=== PATIENT | female | born 1950 | race Caucasian/White ===

== ENCOUNTER → 2016-05-01 | Outpatient (CLI) | payer BC ==
[2016-05-01 12:30] LABS: ALT/SGPT 31 U/L (12-78); AST/SGOT 19 U/L (15-37); BLOOD UREA NITROGEN 14 mg/dl (7-18); BUN/CREATININE RATIO 14.6 (10-20); CALCIUM 9.1 mg/dl (8.5-10.1); CARBON DIOXIDE 26 mmol/L (21-32); CHLORIDE 107 mmol/L (98-107); CHOLESTEROL 151 mg/dl (0-200); CREATININE 0.99 mg/dl (0.60-1.20); GLUCOSE 131 mg/dl (70-99); SODIUM 142 mmol/L (136-145); TRIGLYCERIDES 177 mg/dl (0-150); VERY LOW DENSITY LIPOPROT CALC 35 mg/dl
[2016-05-01 12:36] LABS: ALKALINE PHOSPHATASE 90 U/L (45-117); HDL CHOLESTEROL 50 mg/dl; LDL CHOLESTEROL CALCULATED 66 mg/dl; URIC ACID 4.5 mg/dl (2.6-7.2)
[2016-05-01 12:43] LABS: ESTIMATED AVERAGE GLUCOSE 148 mg/dl; HA1C FLAG Normal (Normal)
[2016-05-01 13:16] LABS: URINE APPEARANCE CLOUDY (CLEAR); URINE BILIRUBIN NEG (NEG); URINE COLOR DK YELLOW; URINE EPITHELIAL CELL AUTO >30 /lpf (0-5); URINE NITRITE NEG (NEG); URINE SPECIFIC GRAVITY 1.018 (1.000-1.030); UROBILINOGEN NEG (NEG); ZZUR CULT IF INDIC CLEAN CATCH YES
[2016-05-01 13:19] LABS: MANUAL MICROSCOPIC REQUIRED? NO; REVIEW REQ? NO
[2016-05-01 14:10] LABS: RATIO 48.1 mcg/mg (0-30.0)
== END | disposition home or self-care (01) ==
LOC: C.LAB1850 11:05
PROVIDERS: ATTEND Internal Medicine
DX: E11.9 Type 2 diabetes mellitus without complications (principal); M10.9 Gout, unspecified

== ENCOUNTER → 2017-01-21 | Outpatient (CLI) | payer BC ==
[2017-01-21 15:58] LABS: ALT/SGPT 40 U/L (12-78); BLOOD UREA NITROGEN 23 mg/dl (7-18); BUN/CREATININE RATIO 19.5 (10-20); CARBON DIOXIDE 25 mmol/L (21-32); CHLORIDE 104 mmol/L (98-107); CREATININE 1.16 mg/dl (0.60-1.20); GLUCOSE 307 mg/dl (70-99); POTASSIUM 4.5 mmol/L (3.5-5.1); SODIUM 138 mmol/L (136-145)
[2017-01-21 16:00] LABS: AST/SGOT 21 U/L (15-37)
[2017-01-21 16:07] LABS: ALKALINE PHOSPHATASE 94 U/L (45-117); BETA-HYDROXYBUTYRATE 1.25 mg/dL (0.2-2.81)
[2017-01-22 07:03] LABS: ESTIMATED AVERAGE GLUCOSE 194 mg/dl; HA1C FLAG Normal (Normal)
== END | disposition home or self-care (01) ==
LOC: C.LAB1850 14:19
PROVIDERS: ATTEND Internal Medicine
DX: E11.9 Type 2 diabetes mellitus without complications (principal)

== ENCOUNTER → 2017-05-13 | Outpatient (CLI) | payer BC ==
[2017-05-13 13:26] LABS: HEMOGLOBIN A1C 7.1 % (4.5-5.6)
== END | disposition home or self-care (01) ==
LOC: C.LABBC 11:12
PROVIDERS: ATTEND Nurse Practitioner Family
DX: E11.9 Type 2 diabetes mellitus without complications (principal)

== ENCOUNTER 2019-08-23 16:12 | Observation (INO) ==
[2019-08-23] MEDS ORDERED: HydrALAZINE HCL 20 MG/ML VIAL IV STA ×2 (17:26→18:21)
--- NOTE | 2019-08-23 17:30 | Emergency Department Note ---
Impression & Plan Hypertensive emergency, Bradycardia, Dizziness ED Provider Note NAME: CELIO DILLON AGE: 69 SEX: F : 1950 ARRIVES VIA: Walk-In INFORMANT: Patient ED PROVIDER(S): Miguel Mccord DO CHIEF COMPLAINT: Hypertension HPI: Patient is a 69-year-old female who presents the ER for hypertension. She was seen by the PCP and referred over here for elevated blood pressures. Patient was recently diagnosed with hypertension 2 to 3 weeks ago. She was placed on hydralazine last . She has been taking 50 mg 3 times a day. Since then she has been lightheaded with changing positions. If she stands up and stays still the lightheadedness will go away. She denies any chest pain shortness of breath, nausea vomiting or diarrhea. No weakness or numbness in her arms or legs. No change in vision.Exacerbating or remitting factors. Blood pressures have been in the 190sExacerbating or remitting factors. Blood pressures have been in the 190s. She was given a dose of clonidine at her PCPs office without any change in blood pressure. ROS: See above HPI for pertinent positives & negatives. A total of 10 systems reviewed and were otherwise negative. PAST MEDICAL HISTORY:See Below PAST SURGICAL HISTORY:See Below FAMILY HISTORY:See Below SOCIAL HISTORY:See Below HOME MEDICATIONS:See Below ALLERGIES:See Below VITALS:See Below PHYSICAL EXAMINATION: GENERAL: Sitting up in bed, alert, well appearing, well nourished, no distress, non-toxic EYE EXAM: normal conjunctiva. PERRL and EOM's grossly intact. OROPHARYNX: no exudate, no erythema, lips, buccal mucosa, and tongue normal and mucous membranes are moist NECK: supple, no nuchal rigidity, no adenopathy, non-tender LUNGS: Clear to auscultation. Normal chest wall mechanics HEART: no murmurs, S1 normal and S2 normal ABDOMEN: abdomen soft, non-tender, normo-active bowel sounds, no masses, no rebound or guarding. BACK: Back is symmetrical on inspection and there is no deformity, no midline tenderness, no CVA tenderness. SKIN: no rashes and no bruising UPPER EXTREMITIES: upper extremities are grossly normal. LOWER EXTREMITIES: No pitting edema. NEURO EXAM: Normal sensorium, cranial nerves II-XII intact, normal speech, no weakness of arms, no weakness of legs. No drift. Finger to nose intact. Gross sensation intact. MEDICAL DECISION MAKING: Patient is a 69-year-old female who presents the ER was referred in by PCP for hypertension. She is been struggling with this for the past 2 to 3 weeks. Blood pressure at the PCP was 190. She was given dose clonidine with no improvement. She is been taking hydralazine 50 mg 3 times a day.IV was established blood work was obtained. Labs show no significant leukocytosis or anemia. INR was unremarkable. BMP with a slightly elevated chloride. LFTs bilirubin and troponin was negative. Lipase was unremarkable.EKG showed no acute ischemia but did show T wave inversion in the high lateral leads. Unable to compare to old but with a negative troponin doubtful that this is new Especially with her not having any chest pain or shortness of breath. Do favor the intermittent dizziness is positional and secondary to the hydralazine as it coincides with when she started this medication.Patient was given 2 dose of IV hydralazine. Blood pressure trended down from 230 systolics to 180. Patient was updated bedside. Discussed with the hospitalist and she was admitted for further work-up. Triage Nursing notes reviewed. Prior medical records reviewed Vital Signs: reviewed and remarkable for HTN Differential diagnosis: Benign hypertension, hypertensive emergency, cardiovascular pathology, toxicologic, pheochromocytoma, electrolyte abnormality, renal disease, endorgan damage, as well as other pathologies. ER treatment provided: See below Diagnostics interpreted by me: ECG: Sinus bradycardia rate of 54 Normal axis No PVCs Nonspecific ST wave changes in the high lateral leads Cardiac Monitoring: An order was placed for continuous cardiac monitoring. The monitor shows a rate of 62 with Sinus rhythm. Laboratory studies: As stated above and show below. Imaging studies: Audible AP upright 1 view of the chest shows no focal infiltrate CT of the head shows no acute infarct Consultation(s): Discussed with Dr. Truman Quinones ED COURSE: Procedures: none Critical Care: I have personally spent 32 minutes of critical care time in the direct management of this patient. This includes bedside care, interpretation of diagnostic studies, and testing, discussion with consultants, patient, and family members, and other required patient management activities. This 32 minutes is in excess of all separately billable procedures. Past Med/Surg History Social History Preferred Language: Greek Communication Ability: Effective marital status: Current Living Situation: Spouse current occupational status: retired Feels Safe at Home: Yes Smoking Status: Never smoker Hx Alcohol Use: No Hx Substance Use: No Diet Comment: Does not follow any particular diet Dental Care, Regularly: Yes Physical Activity Frequency: Does not Exercise Seatbelt Use: always Allergies Allergies Allergy/AdvReac Type Severity Reaction Status Date / Time No Known Drug Allergies AdvReac Verified 08/23/19 18:22 Home Meds Home Medications Medication Instructions Recorded Confirmed aspirin 81 mg tablet,delayed 81 mg PO Q OTHER DAY tab 02/04/19 08/23/19 release lancets 33 gauge ea 03/12/19 08/23/19 atenolol 50 mg PO PM 08/23/19 08/23/19 bumetanide 2 mg PO DAILY PRN 08/23/19 08/23/19 calcium carbonate [Calcium 600] 600 mg PO AMPM 08/23/19 08/23/19 ibuprofen [Advil] 600 mg PO Q6H PRN 08/23/19 08/23/19 insulin lispro [Humalog KwikPen 50 units SQ BIDM 08/23/19 08/23/19 Insulin] loperamide [Imodium A-D] 2 mg PO QID PRN 08/23/19 08/23/19 losartan 100 mg PO PM 08/23/19 08/23/19 omega-3 fatty acids 1,000 mg PO BID 08/23/19 08/23/19 pravastatin 20 mg PO PM 08/23/19 08/23/19 probenecid 500 mg PO PM 08/23/19 08/23/19 Previous Rx's Medication Instructions Recorded potassium chloride 10 mEq 10 meq PO DAILY #30 tab 08/05/18 tablet,extended release sumatriptan succinate 50 mg tablet 50 mg PO DAILY PRN #6 box 04/05/19 OneTouch Ultra Blue Test Strip #400 ea NS 05/19/19 Martha Heaton U-300 Insulin 300 48 units SQ HS #18 ml NS 07/01/19 unit/mL (1.5 mL) subcutaneous pen clonidine HCl 0.1 mg tablet 0.1 mg PO BID #60 tab 08/23/19 Results & Data (ED) Vital Signs Vital Signs - 24 hr 08/23/19 16:15 08/23/19 17:44 08/23/19 18:30 Temperature 37.1 C Temperature Source Oral Pulse Rate 73 Pulse Rate [Finger] 62 82 Pulse Rhythm Regular Pulse Strength Normal Respiratory Rate 16 18 20 Respiratory Effort / Characteristics Non-Labored Non-Labored Respiratory Depth Normal Normal Normal Respiratory Pattern Regular Blood Pressure 230/90 H Blood Pressure [Left Arm] 197/71 H 186/72 H Blood Pressure Mean 136 Blood Pressure Mean [Left Arm] 113 110 Blood Pressure Position Sitting Pulse Oximetry 92 97 97 Oxygen Delivery Method Room Air Room Air Sepsis Recent Fever Within 48 Hours No Sepsis Action Taken by Nursing No Action Required 08/23/19 19:51 Temperature Temperature Source Pulse Rate Pulse Rate [Finger] 65 Pulse Rhythm Pulse Strength Respiratory Rate 18 Respiratory Effort / Characteristics Respiratory Depth Respiratory Pattern Blood Pressure Blood Pressure [Left Arm] 211/87 H Blood Pressure Mean Blood Pressure Mean [Left Arm] 128 Blood Pressure Position Pulse Oximetry 99 Oxygen Delivery Method Sepsis Recent Fever Within 48 Hours Sepsis Action Taken by Nursing Laboratory Data Result diagrams: 08/23/19 17:50 08/23/19 17:50 Lab Results 08/23/19 08/23/19 08/23/19 Range/Units 17:50 17:50 17:50 WBC 10.30 (4.8-10.8) K/uL RBC 4.98 (4.2-5.4) M/uL Hgb 14.6 (12.0-16.0) g/dL Hct 45.1 (37-47) % MCV 90.6 (80-100) fL MCH 29.3 (25-34) pg MCHC 32.4 (32-36) g/dL RDW Std Deviation 48.3 H (36.4-46.3) fL RDW Coeff of Bennie 14.6 H (11.5-14.5) % Plt Count 288 (130-400) K/uL MPV 9.6 (7.4-10.4) fL Immature Gran % (Auto) 0.3 % Neut % (Auto) 72.2 % Lymph % (Auto) 16.7 % [place] % (Auto) 8.9 % Eos % (Auto) 1.2 % Baso % (Auto) 0.7 % Neut # (Auto) 7.44 H (1.4-6.5) K/uL Lymph # (Auto) 1.72 (1.2-3.4) K/uL [place] # (Auto) 0.92 H (0.11-0.59) K/uL Eos # (Auto) 0.12 (0-0.5) K/uL Baso # (Auto) 0.07 (0-0.2) K/uL Immature Gran # (Auto) 0.03 H (0.00-0.02) K/uL PT 10.7 (9.0-12.0) Seconds INR 1.0 (0.9-1.1) APTT 24.9 (21.0-31.0) Seconds PTT Ratio 0.9 Sodium 141 (136-145) mmol/L Potassium 3.7 (3.5-5.1) mmol/L Chloride 110 H (98-107) mmol/L Carbon Dioxide 23 (21-32) mmol/L Anion Gap 8.0 (3-11) BUN 17 (7-18) mg/dl Creatinine 1.03 (0.6-1.2) mg/dl Est Cr Clr Drug Dosing 73.6 ml/min Est GFR ( Amer) 63.8 Est GFR (Non-Af Amer) 55.0 BUN/Creatinine Ratio 16.7 (10-20) Glucose 111 H (70-99) mg/dl Calcium 9.1 (8.5-10.1) mg/dl Total Bilirubin 0.4 (0.2-1) mg/dl AST 24 (15-37) U/L ALT 35 (12-78) U/L Alkaline Phosphatase 80 (45-117) U/L Troponin I < 0.015 (0-0.045) ng/ml Total Protein 7.6 (6.4-8.2) gm/dl Albumin 3.5 (3.4-5.0) gm/dl Globulin 4.1 H (2.5-4.0) gm/dl Albumin/Globulin Ratio 0.8 L (0.9-2) Lipase 67 L (73-393) U/L Administered Medications Discontinued Medications Hydralazine HCl (Hydralazine Hcl) 10 mg IV NOW STA Stop: 08/23/19 17:27 Last Admin: 08/23/19 17:52 Dose: 10 mg Documented by: [id number] Hydralazine HCl (Hydralazine Hcl) 10 mg IV NOW STA Stop: 08/23/19 18:22 Last Admin: 08/23/19 19:46 Dose: 10 mg Documented by: [id number] Discharge Plan Visit Data Chief Complaint: Hypertension Stated Complaint: HIGH BP, REF BY DOCTOR ED Provider: Miguel Mccord Discharge Problem: Hypertensive emergency, Bradycardia, Dizziness Forms Stand Alone Forms: My [facility] Prescriptions Prescriptions: No Action (DME) OneTouch Ultra Blue Test Strip Strip See Dose Instructions .ROUTE .MEDSUPPLY Qty: 400 RF: 3 Toujeo SoloStar U-300 Insulin 300 unit/mL (1.5 mL) insulin pen 48 units SQ HS Qty: 18 RF: 3 potassium chloride [Klor-Con 10] 10 mEq tablet extended release 10 meq PO DAILY Qty: 30 RF: 0 (DME) lancets [OneTouch Delica Plus Lancet] 33 gauge misc See Dose Instructions .ROUTE .MEDSUPPLY RF: 0 clonidine HCl 0.1 mg tablet 0.1 mg PO BID Qty: 60 RF: 2 aspirin 81 mg tablet,delayed release (DR/EC) 81 mg PO Q OTHER DAY RF: 0 sumatriptan succinate 50 mg tablet 50 mg PO DAILY PRN (Reason: headache) Qty: 6 RF: 0 loperamide [Imodium A-D] 2 mg Tablet 2 mg PO QID PRN (Reason: Diarrhea) RF: 0 bumetanide 2 mg tablet 2 mg PO DAILY PRN (Reason: hx of edema) RF: 0 omega-3 fatty acids 1,000 mg capsule 1,000 mg PO BID RF: 0 atenolol 100 mg tablet 50 mg PO PM RF: 0 calcium carbonate [Calcium 600] 600 mg calcium (1,500 mg) tablet 600 mg PO AMPM RF: 0 ibuprofen [Advil] 200 mg tablet 600 mg PO Q6H PRN (Reason: pain) RF: 0 pravastatin 20 mg tablet 20 mg PO PM RF: 0 losartan 100 mg tablet 100 mg PO PM RF: 0 probenecid 500 mg tablet 500 mg PO PM RF: 0 insulin lispro [Humalog KwikPen Insulin] 100 unit/mL insulin pen 50 units SQ BIDM RF: 0
[2019-08-23 18:08] LABS: Basophils # (auto) 0.07 K/uL (0-0.2); Basophils % (auto) 0.7 %; Eosinophils # (auto) 0.12 K/uL (0-0.5); Eosinophils % (auto) 1.2 %; Hematocrit (blood only) 45.1 % (37-47); Hemoglobin 14.6 g/dL (12.0-16.0); Immature Granulocytes # (auto) 0.03 K/uL (0.00-0.02); Immature Granulocytes % (auto) 0.3 %; Lymphocytes # (auto) 1.72 K/uL (1.2-3.4); Lymphocytes % (auto) 16.7 %; Mean Corpuscular Hemoglobin 29.3 pg (25-34); Mean Corpuscular Hgb Conc 32.4 g/dL (32-36); Mean Corpuscular Volume 90.6 fL (80-100); Mean Platelet Volume 9.6 fL (7.4-10.4); Monocytes # (auto) 0.92 K/uL (0.11-0.59); Monocytes % (auto) 8.9 %; Neutrophils # (auto) 7.44 K/uL (1.4-6.5); Neutrophils % (auto) 72.2 %; Platelet Count 288 K/uL (130-400); RDW Coefficient of Variation 14.6 % (11.5-14.5); RDW Standard Deviation 48.3 fL (36.4-46.3); Red Blood Count 4.98 M/uL (4.2-5.4)
[2019-08-23 18:15] LABS: Partial Thromboplastin Ratio 0.9; Partial Thromboplastin Time 24.9 Seconds (21.0-31.0); Prothrombin Time 10.7 Seconds (9.0-12.0)
[2019-08-23 18:22] LABS: Alanine Aminotransferase 35 U/L (12-78); Albumin Level 3.5 gm/dl (3.4-5.0); Aspartate Aminotransferase 24 U/L (15-37); BUN Creatinine Ratio 16.7 (10-20); Blood Urea Nitrogen 17 mg/dl (7-18); Calcium 9.1 mg/dl (8.5-10.1); Carbon Dioxide 23 mmol/L (21-32); Chloride 110 mmol/L (98-107); Creatinine Clr Calc Pharmacy 73.6 ml/min; Est GFR (African American) 63.8; Glucose 111 mg/dl (70-99); Lipase 67 U/L (73-393); Potassium 3.7 mmol/L (3.5-5.1); Sodium 141 mmol/L (136-145)
--- NOTE | 2019-08-23 18:24 | XRay Report ---
SINGLE VIEW CHEST CLINICAL HISTORY: Atypical chest pain. FINDINGS: An AP, portable, upright chest radiograph is obtained. No prior studies are available for c omparison at the time of dictation. The heart is enlarged noting atherosclerotic calcification of th e thoracic aorta. The pulmonary vasculature is noncongested. There is bibasilar scarring/atelectasis. No airspace consolidation or large pleural effusion is identified. No pneumothorax is seen. The skel etal structures are osteopenic. The bony thorax is grossly intact. IMPRESSION: Cardiomegaly with no acute cardiopulmonary abnormality. ACT 112: Negative or not required by law. Electronically signed by: Elan Ray M.D. 08/23/2019 6:23 PM
[2019-08-23 18:26] LABS: Albumin Globulin Ratio 0.8 (0.9-2); Alkaline Phosphatase 80 U/L (45-117); Bilirubin,Total 0.4 mg/dl (0.2-1); Globulin 4.1 gm/dl (2.5-4.0); Total Protein 7.6 gm/dl (6.4-8.2); Troponin I < 0.015 ng/ml (0-0.045)
--- NOTE | 2019-08-23 18:41 | CT Scan Report ---
CT SCAN OF THE BRAIN WITHOUT IV CONTRAST CLINICAL HISTORY: Dizziness. COMPARISON STUDY: MRI of the brain dated 05/19/2015. TECHNIQUE: Unenhanced axial CT scan of the brain is performed from the vertex to the skull base. A do se lowering technique was utilized adhering to the principles of ALARA. CT DOSE: 537.48 mGy.cm FINDINGS: Brain parenchyma: There is mild age-related involutional change. There is no hemorrhage, mass effect, or evidence of acute territorial ischemia by CT criteria. Ramos-white matter differentiation is prese rved. No extra-axial fluid collection is seen. Ventricles, sulci, cisterns: Prominent secondary to involutional change. Intracranial vasculature: There is mild atherosclerotic calcification of the cavernous carotid arteri es. Calvarium: Unremarkable. Sinuses and mastoids: The visualized paranasal sinuses are clear. The mastoid air cells are well pneu matized. Orbits: The bony orbits are grossly intact. IMPRESSION: There is no hemorrhage, mass effect, or evidence of acute territorial ischemia by CT mannie ramos. ACT 112: Negative or not required by law. Electronically signed by: Elan Ray M.D. 08/23/2019 6:39 PM
--- NOTE | 2019-08-23 20:36 | History & Physical Report ---
Date of Service August 23, 2019 Assessment & Plan (1) Hypertensive urgency: 69 yo F with PMH DM2 on insulin, recent HTN diagnosis uncontrolled on 4+ medications, admitted for HTNive urgency and BP control. 1) HTNive Urgency - no signs of end organ failure or damage. Pressures of 200/90 on admission. Received 10 mg IV Hydralazine x2 in ED, lowering BP to 180/90. - Outpatient regimen: - Clonidine 0.1 mg PO BID (new as of 08/22) - Losartan 100 mg PO PM - Bumex 2 mg PO daily PRN Swelling - Atenolol 50 mg PO PM - Hold atenolol. -Start cardizem 60 mg Q6H ordered overnight to assess response to CCB. Can switch to CD formulation in AM if responding appropriately - consider weaning clonidine if cardizem provides better control going forward - renal artery and parenchyma US ordered to assess for stenosis/disease - AM aldosterone and renin levels given resistant HTN in setting of difficulty controlling on 4+ medications - requires lots of education regarding dietary and lifestyle management of hypertension [dietary consult placed for discussion re: easy foods to work with on a heart healthy and diabetic diet] 2) RIYA? - would benefit from outpatient testing for RIYA given positive response to screening questions per HPI - can consider overnight O2 sat monitoring or trial with CPAP in hospital 3) DM2 on insulin - Home regimen: - Toujeo 48 units nightly - Insulin Lispro 12 units with lunch, 20 with dinner - Nightly insulin adjusted to 80% of normal x1 dose given conversion from Toujeo to Lantus [35 units x 1 dose 08/22 pm]. - Nightly insulin going forward 40 units Lantus QPM while hospitalized, can be adjusted based on sugars and requirements - SSI ordered, 1:7 carb ratio, correction factor 25 4) CAD prevention - no NE/CAD hx - continue daily ASA 81 mg, pravastatin 20 mg - high risk for adverse cardiac events (14.8% 10 year risk of NE/) 5) Migraines with aura - sumatriptan continued from home regimen 6) Gout - probenacid continued from home DVT ppx: lovenox FEN/GI: Carb consistent, low sodium diet Code Status: Full Code Dispo: Med/Surg with Tele (2) Dizziness: (3) H/O: hysterectomy: (4) Insulin dependent diabetes mellitus: History of Present Illness Isabell is a 69-year-old female with a past medical history of diabetes type 2 managed on insulin with a recent diagnosis of hypertension. She has been on a number of new blood pressure medications in the outpatient setting and was seen in her primary care office earlier today and found to have increasingly high blood pressures. She was sent over to the emergency department for IV medication for blood pressure control. She attests to feeling dizzy when going from sitting to standing but otherwise denies any dizziness when walking or sitting at rest. She denies any chest pain, chest tightness, chest pressure, shortness of breath. She denies any blurring or changes in vision. She denies any numbness or tingling. She does attest to feeling body wide fatigue but no focal weakness. In discussing options of obstructive sleep apnea she states that her has told her that she snores however she "does not believe him". He has never told her that he has heard her stop breathing while sleeping. She does wake up unrested and frequently feels tired enough to take naps in the middle of the day. She has never fallen asleep while driving but does often feel sleepy in the afternoons. Primary Care Provider: Arik Bañuelos MD Allergies Allergy/AdvReac Type Severity Reaction Status Date / Time No Known Drug Allergies AdvReac Verified 08/23/19 18:22 Home Medications Home Medications Medication Instructions Recorded Confirmed Type potassium chloride 10 mEq 10 meq PO DAILY #30 tab 08/05/18 08/23/19 Rx tablet,extended release aspirin 81 mg tablet,delayed 81 mg PO Q OTHER DAY tab 02/04/19 08/23/19 History release lancets 33 gauge ea 03/12/19 08/23/19 History sumatriptan succinate 50 mg tablet 50 mg PO DAILY PRN #6 box 04/05/19 08/23/19 Rx OneTouch Ultra Blue Test Strip #400 ea NS 05/19/19 08/23/19 Rx Toujeo SoloStar U-300 Insulin 300 48 units SQ HS #18 ml NS 07/01/19 08/23/19 Rx unit/mL (1.5 mL) subcutaneous pen atenolol 50 mg PO PM 08/23/19 08/23/19 History bumetanide 2 mg PO DAILY PRN 08/23/19 08/23/19 History calcium carbonate [Calcium 600] 600 mg PO AMPM 08/23/19 08/23/19 History clonidine HCl 0.1 mg tablet 0.1 mg PO BID #60 tab 08/23/19 08/23/19 Rx ibuprofen [Advil] 600 mg PO Q6H PRN 08/23/19 08/23/19 History insulin lispro [Humalog KwikPen 50 units SQ BIDM 08/23/19 08/23/19 History Insulin] loperamide [Imodium A-D] 2 mg PO QID PRN 08/23/19 08/23/19 History losartan 100 mg PO PM 08/23/19 08/23/19 History omega-3 fatty acids 1,000 mg PO BID 08/23/19 08/23/19 History pravastatin 20 mg PO PM 08/23/19 08/23/19 History probenecid 500 mg PO PM 08/23/19 08/23/19 History Past Med/Surg History Social History Preferred Language: Romansh Communication Ability: Effective Appeals Rn Required: No marital status: Current Living Situation: Spouse current occupational status: retired Other Information That Helps Us Care for You: No Feels Safe at Home: Yes Safety Concerns: Feels Safe At This Time Smoking Status: Never smoker Hx Alcohol Use: Yes Hx Substance Use: No Diet Comment: Does not follow any particular diet Dental Care, Regularly: Yes Physical Activity Frequency: Does not Exercise Seatbelt Use: always Review of Systems Constitutional: + fatigue; no fever, no chills and no body aches Respiratory: no cough and no dyspnea Cardiovascular: no chest pain, no dyspnea and no edema Gastrointestinal: no abdominal pain, no nausea, no vomiting, no constipation and no diarrhea/loose stools Genitourinary: no dysuria Physical Exam Physical Exam: Constitutional: obese, in no apparent distress, sitting comfortably in bed. Eyes: EOMI, pupils equal and reactive bilaterally, no scleral icterus HENT: Thick neck Cardiac: RRR, no murmurs, gallops or rubs. Normal S1, S2 Pulm: CTA BL, no wheezes, rhonchi, crackles or rubs, moving air well throughout both lungs Abd: soft, nontender, nondistended, normal bowel sounds, no rebound or guarding Extremities: 2+ peripheral pulses, no edema Neuro: no focal deficits, moving all 4 limbs, A&Ox3 Results & Data Results & Data ([facility]) Vital Signs (Past 12 Hours) Vital Signs Temp Pulse Pulse Resp BP BP Pulse Ox 08/23/19 19:51 65 18 211/87 H 99 08/23/19 18:30 82 20 186/72 H 97 08/23/19 17:44 62 18 197/71 H 97 08/23/19 16:15 37.1 C 73 16 230/90 H 92 Laboratory Results WBC 10.30 K/uL (4.8-10.8) 08/23/19 17:50 RBC 4.98 M/uL (4.2-5.4) 08/23/19 17:50 Hgb 14.6 g/dL (12.0-16.0) 08/23/19 17:50 Hct 45.1 % (37-47) 08/23/19 17:50 MCV 90.6 fL (80-100) 08/23/19 17:50 MCH 29.3 pg (25-34) 08/23/19 17:50 MCHC 32.4 g/dL (32-36) 08/23/19 17:50 RDW Std Deviation 48.3 fL (36.4-46.3) H 08/23/19 17:50 RDW Coeff of Bennie 14.6 % (11.5-14.5) H 08/23/19 17:50 Plt Count 288 K/uL (130-400) 08/23/19 17:50 MPV 9.6 fL (7.4-10.4) 08/23/19 17:50 Immature Gran % (Auto) 0.3 % 08/23/19 17:50 Neut % (Auto) 72.2 % 08/23/19 17:50 Lymph % (Auto) 16.7 % 08/23/19 17:50 [place] % (Auto) 8.9 % 08/23/19 17:50 Eos % (Auto) 1.2 % 08/23/19 17:50 Baso % (Auto) 0.7 % 08/23/19 17:50 Neut # (Auto) 7.44 K/uL (1.4-6.5) H 08/23/19 17:50 Lymph # (Auto) 1.72 K/uL (1.2-3.4) 08/23/19 17:50 [place] # (Auto) 0.92 K/uL (0.11-0.59) H 08/23/19 17:50 Eos # (Auto) 0.12 K/uL (0-0.5) 08/23/19 17:50 Baso # (Auto) 0.07 K/uL (0-0.2) 08/23/19 17:50 Immature Gran # (Auto) 0.03 K/uL (0.00-0.02) H 08/23/19 17:50 PT 10.7 Seconds (9.0-12.0) 08/23/19 17:50 INR 1.0 (0.9-1.1) 08/23/19 17:50 APTT 24.9 Seconds (21.0-31.0) 08/23/19 17:50 PTT Ratio 0.9 08/23/19 17:50 Sodium 141 mmol/L (136-145) 08/23/19 17:50 Potassium 3.7 mmol/L (3.5-5.1) 08/23/19 17:50 Chloride 110 mmol/L (98-107) H 08/23/19 17:50 Carbon Dioxide 23 mmol/L (21-32) 08/23/19 17:50 Anion Gap 8.0 (3-11) 08/23/19 17:50 BUN 17 mg/dl (7-18) 08/23/19 17:50 Creatinine 1.03 mg/dl (0.6-1.2) 08/23/19 17:50 Est Cr Clr Drug Dosing 73.6 ml/min 08/23/19 17:50 Est GFR ( Amer) 63.8 08/23/19 17:50 Est GFR (Non-Af Amer) 55.0 08/23/19 17:50 BUN/Creatinine Ratio 16.7 (10-20) 08/23/19 17:50 Glucose 111 mg/dl (70-99) H 08/23/19 17:50 POC Glucose 94 mg/dl (70-99) 08/23/19 21:03 Calcium 9.1 mg/dl (8.5-10.1) 08/23/19 17:50 Total Bilirubin 0.4 mg/dl (0.2-1) 08/23/19 17:50 AST 24 U/L (15-37) 08/23/19 17:50 ALT 35 U/L (12-78) 08/23/19 17:50 Alkaline Phosphatase 80 U/L (45-117) 08/23/19 17:50 Troponin I < 0.015 ng/ml (0-0.045) 08/23/19 17:50 Total Protein 7.6 gm/dl (6.4-8.2) 08/23/19 17:50 Albumin 3.5 gm/dl (3.4-5.0) 08/23/19 17:50 Globulin 4.1 gm/dl (2.5-4.0) H 08/23/19 17:50 Albumin/Globulin Ratio 0.8 (0.9-2) L 08/23/19 17:50 Lipase 67 U/L (73-393) L 08/23/19 17:50 Supervising Physician Co-Signing Physician Notes Attending addendum: I have physically seen this patient, have supervised the medical residents activities, and agree with the H&P unless as otherwise noted. Assessment and Plan: Hypertensive urgency- Patient presently on 4 antihypertensives. Assess for secondary causes of hypertension with ultrasound of kidneys/renal arteries. Add renin and aldosterone levels. Continue aspirin 81 mg daily. Hydralazine 50 mg p.o. 3 times daily was increased from 25 mg p.o. twice daily o n 08/18. Hydralazine 50 mg p.o. 3 times daily was discontinued on 08/22 with the addition of clonidine 0.1 mg p.o. twice daily Hold bumetanide. Hold atenolol. Resume hydralazine at 25 mg p.o. 3 times daily Continue clonidine 0.1 mg p.o. twice daily for now. Add Cardizem 60 mg p.o. every 6 hours, then convert to CD dosing if working well. Follow blood pressure and heart rate response, and adjust medications as needed. Try to simplify regimen. Avoid NSAIDs Remainder of orders and notations as noted Resident Activity Tracking Resident Involvement: Resident Care Provided Care Provided: [facility]
[2019-08-23] MEDS ORDERED: ATENOLOL 50 MG TABLET PO SCH ×2 (22:54)
[2019-08-23] MEDS ORDERED: DEXTROSE 50% 50 ML SYRINGE IV PRN ×2 (22:54→23:15)
[2019-08-23] MEDS ORDERED: ACETAMINOPHEN 325 MG TAB PO PRN (22:54)
[2019-08-23] MEDS ORDERED: IBUPROFEN 600 MG TAB PO PRN (22:54)
[2019-08-23] MEDS ORDERED: SUMAtriptan succinate 50 MG TAB PO PRN (22:54)
[2019-08-23] MEDS ORDERED: GLUCOSE 10 TABS/TUBE PO PRN ×2 (22:54→23:15)
[2019-08-23] MEDS ORDERED: BUMETANIDE 1 MG TAB PO PRN (22:54)
[2019-08-23] MEDS ORDERED: ONDANSETRON INJ 2 MG/ML 2 ML VIAL IV PRN (22:54)
[2019-08-23] MEDS ORDERED: GLUCAGON FOR INJ 1 MG VIAL SQ PRN (22:54)
[2019-08-23] MEDS ORDERED: MAGNESIUM HYDROXIDE SUSP 30 ML UDC PO PRN (22:54)
[2019-08-23] MEDS ORDERED: GLUCOSE 40% GEL 15 GM TUBE PO PRN ×2 (22:54→23:15)
[2019-08-23] MEDS ORDERED: NITROGLYCERIN SL 0.4 MG/TAB TAB SL PRN (22:54)
[2019-08-23] MEDS ORDERED: POLYETHYLENE (MIRALAX) 17 GM PACK PO PRN (22:54)
[2019-08-23] MEDS ORDERED: CARBOHYDRATES FOR HYPOGLYCEMIA PO PRN ×2 (22:54→23:15)
[2019-08-23] MEDS ORDERED: INSULIN GLARGINE SOLOSTAR 100 UNITS/ML 3 ML PEN SC ONE (22:54)
[2019-08-23] MEDS ORDERED: ALUMINUM/MAGNESIUM SUSP 30 ML UDC PO PRN (22:54)
[2019-08-23] MEDS ORDERED: GLUCAGON FOR INJ 1 MG VIAL IM PRN (23:15)
[2019-08-23] MEDS: CALCIUM CARBONATE 1250MG TAB PO SCH (23:55)
[2019-08-23] MEDS: PRAVASTATIN SOD 20 MG TAB PO SCH (23:56)
[2019-08-23] MEDS: cloNIDine HCL 0.1 MG TAB PO SCH (23:56)
[2019-08-23] MEDS: PROBENECID 500 MG TAB PO SCH (23:57)
[2019-08-23] MEDS: LOSARTAN POTASSIUM 50 MG TAB PO SCH (23:57)
[2019-08-23] MEDS: OMEGA-3 (PURIFIED FISH OIL) 1 GM CAP PO SCH (23:58)
[2019-08-24] MEDS: dilTIAZem HCl 60 MG TAB PO SCH ×5 (00:05→23:02)
[2019-08-24] MEDS: INSULIN ASPART 100 UNITS/ML 3 ML PEN SC SCH ×6 (00:05→20:37)
[2019-08-24] MEDS: D5W AND 1/2NSS + 20MEQ KCL 20 MEQ/1,000 ML BAG IV SCH ×3 (01:33→23:09)
--- NOTE | 2019-08-24 05:24 | Billing Data ---
Date of Service August 24, 2019 Coding Level of Care Code 71035 OBS Care - Level 3
--- NOTE | 2019-08-24 08:03 | Electrocardiogram Report ---
Test Reason : Blood Pressure : / mmHG Vent. Rate : 054 BPM Atrial Rate : 054 BPM P-R Int : 170 ms QRS Dur : 088 ms QT Int : 462 ms P-R-T Axes : 060 027 088 degrees QTc Int : 438 ms Sinus bradycardia with sinus arrhythmia Otherwise normal ECG No previous ECGs available Confirmed by Ayan Jackman ([id number]) on 08/24/2019 8:02:39 AM Referred By: Arik Ward Confirmed By:Ayan Jackman
--- NOTE | 2019-08-24 08:53 | Ultrasound Report ---
DOPPLER ULTRASOUND OF THE RENAL ARTERIES CLINICAL HISTORY: Hypertension. COMPARISON STUDY: Abdominal ultrasound dated 03/12/2012. TECHNIQUE: Doppler sonography of the renal arteries was performed to assess renal artery stenosis. Im ages are reviewed in the transverse and longitudinal planes. FINDINGS: The kidneys demonstrate cortical atrophy and are normal in echotexture. The right kidney measures 10. 8 cm in length and the left kidney measures 11.7 cm in length. There is no hydronephrosis. A 9 mm sha dowing calculus is noted in the interpolar right kidney. On the right, intrarenal arterial resistive indices range from 0.73 to 0.76. Intrarenal arterial wave forms are normal with brisk upstrokes. The right renal arterial waveform is normal, and velocities wi thin the right renal artery measure up to 134 cm/sec. The right renal vein is patent. On the left, intrarenal arterial resistive indices range from 0.80 to 0.81. Intrarenal arterial wave forms are normal with brisk upstrokes. The left renal arterial waveform is normal, and velocities wit hin the left renal artery measure up to 216 cm/sec. The left renal vein is patent. The abdominal aorta is patent. Velocities within the abdominal aorta measure up to 138 cm/s. Upper abdomen: Large shadowing calcified gallstones are incidentally noted. IMPRESSION: 1. The kidneys demonstrate mild cortical atrophy and are without hydronephrosis. 2. There are mildly elevated velocities within the midportion of the left renal artery suggesting guanako nosis. 3. There is no sonographic evidence of right renal artery stenosis. 4. Cholelithiasis. 5. Right-sided nephrolithiasis. ACT 112: Negative or not required by law. Electronically signed by: Elan Ray M.D. 08/24/2019 8:52 AM
[2019-08-24 10:28] LABS: Estimated Average Glucose 131 mg/dl; Hemoglobin A1C 6.2 % (4.5-5.6)
[2019-08-24 10:33] LABS: BUN Creatinine Ratio 15.3 (10-20); Calcium 9.2 mg/dl (8.5-10.1); Creatinine Clr Calc Pharmacy 82.1 ml/min; Est GFR (African American) 73.1; Est GFR (Non-African American) 63.1; Potassium 3.9 mmol/L (3.5-5.1)
[2019-08-24] MEDS: cloNIDine HCL 0.1 MG TAB PO SCH ×2 (12:14→20:36)
[2019-08-24] MEDS: OMEGA-3 (PURIFIED FISH OIL) 1 GM CAP PO SCH ×2 (12:15→20:36)
[2019-08-24] MEDS: ASPIRIN 81 MG ECTAB PO SCH (12:16)
[2019-08-24] MEDS: CALCIUM CARBONATE 1250MG TAB PO SCH ×2 (12:17→20:38)
[2019-08-24] MEDS: ENOXAPARIN INJ 40 MG/0.4 ML SYR SQ SCH (12:18)
--- NOTE | 2019-08-24 13:05 | XCELERA ---
[id number]
[2019-08-24] MEDS: HydrALAZINE HCL 20 MG/ML VIAL IV PRN ×2 (17:40→23:09)
[2019-08-24] MEDS: PRAVASTATIN SOD 20 MG TAB PO SCH (20:36)
[2019-08-24] MEDS: INSULIN GLARGINE SOLOSTAR 100 UNITS/ML 3 ML PEN SC SCH (20:37)
[2019-08-24] MEDS: LOSARTAN POTASSIUM 50 MG TAB PO SCH (20:37)
[2019-08-24] MEDS: PROBENECID 500 MG TAB PO SCH (20:38)
--- NOTE | 2019-08-24 22:01 | Hospitalist Progress Note ---
Date of Service August 24, 2019 Assessment & Plan (1) Hypertensive urgency: 69 yo F with PMH DM2 on insulin, recent HTN diagnosis uncontrolled on 4+ medications, admitted for HTNive urgency and BP control. 1) HTNive Urgency - no signs of end organ failure or damage. Pressures of 200/90 on admission. Received 10 mg IV Hydralazine x2 in ED, lowering BP to 180/90. - Outpatient regimen: - Clonidine 0.1 mg PO BID (new as of 08/22) - Losartan 100 mg PO PM - Bumex 2 mg PO daily PRN Swelling - Atenolol 50 mg PO PM - Hold atenolol. This was actually given overnight, will hold for today. -will continue cardizem 60 mg Q6H ordered overnight to assess response to CCB. - consider weaning clonidine if cardizem provides better control going forward - U/S showed renal artery stenosis, will consult Dr. Kaur for possible stent placement. - AM aldosterone and renin levels given resistant HTN in setting of difficulty controlling on 4+ medications - requires lots of education regarding dietary and lifestyle management of hypertension [dietary consult placed for discussion re: easy foods to work with on a heart healthy and diabetic diet] 2) RIYA? - would benefit from outpatient testing for RIYA given positive response to screening questions per HPI - can consider overnight O2 sat monitoring or trial with CPAP in hospital 3) DM2 on insulin - Home regimen: - Toujeo 48 units nightly - Insulin Lispro 12 units with lunch, 20 with dinner - Nightly insulin adjusted to 80% of normal x1 dose given conversion from Toujeo to Lantus [35 units x 1 dose 08/22 pm]. - Nightly insulin going forward 40 units Lantus QPM while hospitalized, can be adjusted based on sugars and requirements - SSI ordered, 1:7 carb ratio, correction factor 25 4) CAD prevention - no VA/CAD hx - continue daily ASA 81 mg, pravastatin 20 mg - high risk for adverse cardiac events (14.8% 10 year risk of VA/) 5) Migraines with aura - sumatriptan continued from home regimen 6) Gout - probenacid continued from home DVT ppx: lovenox FEN/GI: Carb consistent, low sodium diet Code Status: Full Code Dispo: Med/Surg with Tele (2) Dizziness: (3) H/O: hysterectomy: (4) Insulin dependent diabetes mellitus: Admission and Anticipated Discharge Date Admission Date: August 24, 2019 Subjective Patient reports feeling well. Hs no complaints. She is concerned about her blood pressure being high. Review of Systems Review of Systems: All systems reviewed & are unremarkable except as noted in HPI & below Physical Exam Physical Exam: Constitutional: obese, in no apparent distress, sitting comfortably in bed. Eyes: EOMI, pupils equal and reactive bilaterally, no scleral icterus HENT: Thick neck Cardiac: RRR, no murmurs, gallops or rubs. Normal S1, S2 Pulm: CTA BL, no wheezes, rhonchi, crackles or rubs, moving air well throughout both lungs Abd: soft, nontender, nondistended, normal bowel sounds, no rebound or guarding Extremities: 2+ peripheral pulses, no edema Neuro: no focal deficits, moving all 4 limbs, A&Ox3 Results & Data Results & Data ([facility]) Vital Signs (Past 12 Hours) Vital Signs Temp Pulse Pulse Resp BP Pulse Ox 08/24/19 19:20 36.5 C 60 18 189/77 H 95 08/24/19 17:13 58 L 191/85 H 08/24/19 15:09 36.7 C 56 L 18 157/71 H 94 08/24/19 15:00 49 L 08/24/19 11:51 36.9 C 53 L 20 179/77 H 96 PG Care Time/CCT Total # of Minutes Spent Total Time Spent with Patient: Total time spent is greater than 50% in coordination of care (as documented) at patient's floor/unit and/or counseling patient: Coding Level of Care Code 76710 Subseq Hosp Care Lvl 3 Diagnoses Hypertensive urgency I16.0 Dizziness R42 H/O: hysterectomy Z90.710 Insulin dependent diabetes mellitus Time Spent (min) 35
[2019-08-25] MEDS: HydrALAZINE HCL 20 MG/ML VIAL IV PRN ×2 (03:32→19:30)
[2019-08-25] MEDS: dilTIAZem HCl 60 MG TAB PO SCH (05:02)
[2019-08-25] MEDS: OMEGA-3 (PURIFIED FISH OIL) 1 GM CAP PO SCH ×2 (08:21→21:04)
[2019-08-25] MEDS: cloNIDine HCL 0.1 MG TAB PO SCH ×2 (08:23→21:01)
[2019-08-25] MEDS: CALCIUM CARBONATE 1250MG TAB PO SCH ×2 (08:25→21:03)
[2019-08-25] MEDS: ENOXAPARIN INJ 40 MG/0.4 ML SYR SQ SCH (08:26)
[2019-08-25] MEDS: INSULIN ASPART 100 UNITS/ML 3 ML PEN SC SCH ×4 (08:27→21:04)
[2019-08-25] MEDS ORDERED: SPIRONOLACTONE 25 MG TAB PO ONE (09:06)
[2019-08-25] MEDS: CHLORTHALIDONE 25 MG TAB PO SCH (11:30)
[2019-08-25] MEDS: D5W AND 1/2NSS + 20MEQ KCL 20 MEQ/1,000 ML BAG IV SCH (11:51)
[2019-08-25] MEDS ORDERED: fentaNYL citrate 100 MCG/2 ML VIAL ONE (13:41)
[2019-08-25] MEDS ORDERED: NiCARDipine HCL INJ 2.5 MG/ML 10 ML AMP ONE (13:41)
[2019-08-25] MEDS ORDERED: HEPARIN (PORCINE) 1000 UNIT/ML 10 ML (CATH LAB USE ONLY) ONE (13:41)
--- NOTE | 2019-08-25 13:41 | Pre Anesthesia Assessment ---
Date of Service August 25, 2019 Pre Sedation Assessment Vital Signs Temp Pulse Pulse Resp BP BP Pulse Ox 08/25/19 21:43 72 08/25/19 19:42 97.5 F L 81 18 204/84 H 95 08/25/19 17:42 78 16 199/81 H 94 08/25/19 17:27 67 18 198/118 H 95 08/25/19 16:57 98.1 F 73 16 201/78 H 97 08/25/19 16:15 66 16 254/92 H 98 08/25/19 16:00 68 16 224/78 H 98 08/25/19 15:45 66 16 221/78 H 97 08/25/19 15:30 63 16 242/92 H 96 08/25/19 11:28 98.1 F 71 20 211/96 H 204/83 H 94 08/25/19 09:21 49 L 08/25/19 07:50 97.7 F 74 20 186/89 H 95 08/25/19 03:32 98.4 F 60 18 181/66 H 96 08/24/19 23:32 68 08/24/19 23:07 98.1 F 52 L 18 179/72 H 94 Cardiovascular RRR, no murmur, no edema Respiratory normal respiratory effort, lungs clear to auscultation Pre-Sedation Airway Assessment Smoking Status: Never smoker Hx Sleep Apnea: No Hx Difficult Intubation: No Thyromental Distance: < 3.5 Finger Breadths Oral Cavity: + WNL Mallampati Class: III ASA: ASA3 NPO Status Date of Last Intake of Fluids: 08/25/19 Time of Last Intake of Fluids: 14:34 Date of Last Intake of Solid Food: 08/25/19 Procedure Planning Contraindications for Sedation: none Current Medications Reviewed: Yes Notes The planned sedation has been discussed with the patient. Informed Consent was obtained. I have identified the patient, determined the appropriateness of sedation and have assessed the patient immediately prior to the procedure. All medicine(s) and interventions are by my order.
[2019-08-25] MEDS ORDERED: NITROGLYCERIN/D5W 100MCG/ML 20ML SYR ONE (13:42)
[2019-08-25] MEDS ORDERED: MIDAZOLAM HCL 1 MG/ML 2ML VIAL ONE (13:42)
--- NOTE | 2019-08-25 14:01 | Vascular Medicine Consultation ---
Date of Consultation August 25, 2019 Assessment & Plan (1) Hypertension: 2. Insulin dependent diabetes 3. Dyslipidemia Patient with a longstanding history of hypertension admitted with hypertensive urgency. She has been asymptomatic. Blood pressure remains uncontrolled despite multiple antihypertensive agents. The sudden onset of her refractory hypertension raises suspicion for secondary causes of hypertension. Renal artery duplex reviewed, question of possible left renal artery stenosis. Recommend additional imaging with CTA versus renal angiography. Patient prefers to proceed with renal angiogram which will be performed later today. Supervising Physician Co-Signing Physician Notes Agree with assessment and plan as outlined by SHRUTI Bennett. Patient with new severe, refractory hypertension despite multiple antihypertensives. She has remained asymptomatic. Renal function normal. Secondary hypertension evaluation included renal artery duplex which suggested possible LT mid renal artery stenosis. Reviewed ultrasound images -- normal bilateral renal size. No significant stenosis on 2D images, RAR normal and PSV seems like overestimate. Based on ultrasound findings suspicion that renovascular disease causing patients hypertension is relatively low. However, with impressive new, refractory hypertension feel reasonable to pursue additional imaging to definitively rule out significant renal artery disease. Plan to proceed with bilateral renal artery angiography via LT radial artery. History of Present Illness Attending Physician: Serjio Frank History of Present Illness Mrs. Styles is a 69 year old female being seen today for evaluation of poss ible renal artery stenosis. Medical history is significant for hypertension, type 2 insulin dependent diabetes, dyslipidemia. Patient was admitted to [facility] on 08/23/19 with hypertensive urgency. She was referred from her PCP office. She reports a longstanding history of hypertension which had until recently been well controlled on losartan 100 mg daily and atenolol 100 mg daily. Earlier this year her atenolol was decreased to 50 mg daily due to bradycardia. On 08/10/19 she saw her PCP for a wellness visit and was noted to have significantly elevated blood pressure. She was started on hydralazine 25 mg bid. She saw her PCP again a week later and blood pressure remained elevated between 150-200/90. Her hydralazine was increased to 50 mg bid. She was again seen at her PCP office on 08/23/19 and blood pressure was elevated at 190/90. She was referred to the emergency department and was admitted. Patient reports she has been asymptomatic. Denies headache, visual changes, chest pain, shortness of breath, palpitations, lightheadedness, near syncope or syncope. Since admission has been on clonidine 0.1 mg bid, losartan 100 mg daily, hydralazine 25 mg tid and started on chlorthalidone 25 mg this morning. Atenolol has been held due to bradycardia. Blood pressure remains significantly high, most recent reading 211/96. Head CT negative. Chest xray unremarkable. Renal artery duplex suggestive of possible left renal artery stenosis. Kidneys normal in size and renal function/electrolytes in acceptable range. Aldosterone level pending. Admits her diet is high in sodium. Social history: . Retired from office work. Quit smoking 30 years ago. No alcohol or drug use. Allergies Allergy/AdvReac Type Severity Reaction Status Date / Time No Known Drug Allergies AdvReac Verified 08/23/19 18:22 Home Medications Home Medications Medication Instructions Recorded Confirmed Type potassium chloride 10 mEq 10 meq PO DAILY #30 tab 08/05/18 08/23/19 Rx tablet,extended release aspirin 81 mg tablet,delayed 81 mg PO Q OTHER DAY tab 02/04/19 08/23/19 History release lancets 33 gauge ea 03/12/19 08/23/19 History sumatriptan succinate 50 mg tablet 50 mg PO DAILY PRN #6 box 04/05/19 08/23/19 Rx OneTouch Ultra Blue Test Strip #400 ea NS 05/19/19 08/23/19 Rx [place] SoloStar U-300 Insulin 300 48 units SQ HS #18 ml NS 07/01/19 08/23/19 Rx unit/mL (1.5 mL) subcutaneous pen atenolol 50 mg PO PM 08/23/19 08/23/19 History bumetanide 2 mg PO DAILY PRN 08/23/19 08/23/19 History calcium carbonate [Calcium 600] 600 mg PO AMPM 08/23/19 08/23/19 History clonidine HCl 0.1 mg tablet 0.1 mg PO BID #60 tab 08/23/19 08/23/19 Rx ibuprofen [Advil] 600 mg PO Q6H PRN 08/23/19 08/23/19 History insulin lispro [Humalog KwikPen 50 units SQ BIDM 08/23/19 08/23/19 History Insulin] loperamide [Imodium A-D] 2 mg PO QID PRN 08/23/19 08/23/19 History losartan 100 mg PO PM 08/23/19 08/23/19 History omega-3 fatty acids 1,000 mg PO BID 08/23/19 08/23/19 History pravastatin 20 mg PO PM 08/23/19 08/23/19 History probenecid 500 mg PO PM 08/23/19 08/23/19 History Patient History Social History Preferred Language: Mosotho Communication Ability: Effective Wilton Weaver Required: No marital status: Current Living Situation: Spouse current occupational status: retired Other Information That Helps Us Care for You: No Feels Safe at Home: Yes Safety Concerns: Feels Safe At This Time Smoking Status: Never smoker Hx Alcohol Use: Yes Hx Substance Use: No Diet Comment: Does not follow any particular diet Dental Care, Regularly: Yes Physical Activity Frequency: Does not Exercise Seatbelt Use: always Review of Systems Review of Systems: All systems reviewed & are unremarkable except as noted in HPI & below Results & Data Vital Signs (Past 12 Hours) Vital Signs Temp Pulse Pulse Resp BP BP Pulse Ox 08/25/19 11:28 36.7 C 71 20 211/96 H 204/83 H 94 08/25/19 09:21 49 L 08/25/19 07:50 36.5 C 74 20 186/89 H 95 08/25/19 03:32 36.9 C 60 18 181/66 H 96 Laboratory Results Laboratory Results - last 24 hr 08/24/19 08/24/19 08/25/19 16:32 20:28 07:40 POC Glucose 99 126 H 104 H 08/25/19 11:49 POC Glucose 99 Diagnostic Findings EKG sinus bradycardia Tele reviewed-- sinus bradycardia and sinus rhythm. No arrhythmia or pause PG Care Time/CCT Total # of Minutes Spent Total Time Spent with Patient: Total time spent is greater than 50% in coordination of care (as documented) at patient's floor/unit and/or counseling patient: Coding Level of Care Code 89678 Initial Inpt Care Lvl 3 Diagnoses Hypertension I10
[2019-08-25] MEDS ORDERED: HydrALAZINE HCL 20 MG/ML VIAL ONE (14:11)
[2019-08-25] MEDS ORDERED: AMLODIPINE BESYLATE 5 MG TAB PO ONE (15:28)
--- NOTE | 2019-08-25 17:08 | Post Anesthesia Assessment ---
Date of Service August 25, 2019 Post Sedation Assessment Vital Signs Temp Pulse Pulse Resp BP BP Pulse Ox 08/25/19 16:57 98.1 F 73 16 201/78 H 97 08/25/19 16:15 66 16 254/92 H 98 08/25/19 16:00 68 16 224/78 H 98 08/25/19 15:45 66 16 221/78 H 97 08/25/19 15:30 63 16 242/92 H 96 08/25/19 11:28 98.1 F 71 20 211/96 H 204/83 H 94 08/25/19 09:21 49 L 08/25/19 07:50 97.7 F 74 20 186/89 H 95 08/25/19 03:32 98.4 F 60 18 181/66 H 96 08/24/19 23:32 68 08/24/19 23:07 98.1 F 52 L 18 179/72 H 94 08/24/19 19:20 97.7 F 60 18 189/77 H 95 08/24/19 17:13 58 L 191/85 H Recovery Score Activity: Moves 4 extremities Respiration: Deep Breath/Cough Circulation: +/-20% PreAnes Value Consciousness: Fully Awake Oxygen Saturation: > 92% On Room Air Post Anesthesia Score: 10 Discharge Sedation Level of Care: Fast Track Phase II Post Sedation Plan On clinical assessment, the patient appears to have tolerated the sedation without complications. Patient is recovering as anticipated. Patient will continue to be monitored by nursing and may be discharged when sedation discharge criteria are met per below protocol. Upon Completions of procedure up to 15 minutes continue every 5 minute vital signs and the P.A.R. score; then discharge to a Phase I or Fast Track to Phase II per the following guidelines: * Discharge Patient to appropriate Phase II area if PAR is 8 or greater or return to pre- procedure baseline. The post - procedure orders will be as directed. * If PAR score is less than 8 or not return to pre-procedure baseline then patient will follow Phase I monitoring till PAR is reached for Phase II. The Phase I may be done in procedure room or may call to secure a Phase I area. * If naloxone or flumazenil are used for reversal, hold in Phase I for continued monitoring from when last reversal dose was given for a minimum of 60 minutes or longer pending the nurse and/or physician discretion of patient condition before discharge to Phase II. Please call the Sedation Physician to re-evaluate and complete post-note for discharge to Phase II area. Do NOT discharge from procedure sedation or Phase 1 until post- sedation evaluation note is complete by procedure /sedation MD Sedation Discharge Instructions to be given to the patient at discharge to home.
--- NOTE | 2019-08-25 17:11 | Endovascular Procedure Note ---
[facility] Endovascular Procedure Rpt Pre & Post Diagnosis Operation Date: 08/25/19 14:00 Refractory Hypertension I identified the patient and participated in the time-out.: Yes Procedure Operation Date: 08/25/19 14:00 Actual Procedures p Cineradiography w/Routine Exam - Willie Kaur MD p Angio Renal Bilateral - Willie Kaur MD Surgeon Man Kaur MD Works Manager Basilio Estimated Blood Loss 10 Findings See Below Abdominal aorta - No significant aneurysmal or stenotic disease. RT Renal Artery - Widely patent with no significant stenosis. No accessory renal arteries. LT Renal Artery - Widely patent with no significant stenosis. No accessory renal arteries. Anesthesia Type RN Sedation Radiation Exposure (mGv) Radiation (mGy): 1,356 Contrast Contrast: 35 Complications none Disposition Accompanied Patient To Recovery: No Disposition: PCU Description of Procedure Left radial artery access obtained under ultrasound guidance Pigtail navigated to abdominal aorta Pigtail exchanged for long JR 4 for selective angiography of bilateral renals arteries. Catheters removed and TR band for radial artery hemostasis. Summary: 1. Normal bilateral renal artery angiogram without significant renal artery disease. Recommendations. No significant renovascular disease to explain refractory hypertension. I attest to the content of the Intraoperative Record and any orders documented therein. Any exceptions are noted below. Vascular Charges Angiography/Venography Procedure 1: Angiography/Venography charges: [id number] Aortography, abdominal, by serialography, radiological S&I Procedure 2: Angiography/Venography charges: [id number] Bilateral renal artery selective catheter placement Additional Services Procedure 1: Additional Services Charges: 48344 Ultrasound guidance - vascular access Procedure 2: Additional Services Charges: 67635 Moderate sedation initial 15 min
[2019-08-25] MEDS ORDERED: AMLODIPINE BESYLATE 5 MG TAB PO SCH (21:00)
[2019-08-25] MEDS: PROBENECID 500 MG TAB PO SCH (21:01)
[2019-08-25] MEDS: LOSARTAN POTASSIUM 50 MG TAB PO SCH (21:02)
[2019-08-25] MEDS: PRAVASTATIN SOD 20 MG TAB PO SCH (21:02)
[2019-08-25] MEDS: INSULIN GLARGINE SOLOSTAR 100 UNITS/ML 3 ML PEN SC SCH (21:05)
[2019-08-25] MEDS ORDERED: HydrALAZINE HCL 20 MG/ML VIAL IV ONE (22:09)
--- NOTE | 2019-08-25 22:15 | Hospitalist Progress Note ---
Date of Service August 25, 2019 Assessment & Plan (1) Hypertensive urgency: 69 yo F with PMH DM2 on insulin, recent HTN diagnosis uncontrolled on 4+ medications, admitted for HTNive urgency and BP control. 1) HTNive Urgency - no signs of end organ failure or damage. Pressures of 200/90 on admission. Received 10 mg IV Hydralazine x2 in ED, lowering BP to 180/90. - Outpatient regimen: - Clonidine 0.1 mg PO BID (new as of 08/22) - Losartan 100 mg PO PM - Bumex 2 mg PO daily PRN Swelling - Atenolol 50 mg PO PM -Plan today is to place her on A DIURETIC. wILL STOP IVF. Will also place on sipronolactone. will await input from Dr. Kaur. May consider adding amlodipine in the evening. will hold cardizem, bumex. -cont. losartan, clonidine. May consider adding coreg if HR improves. - U/S showed renal artery stenosis, will consult Dr. Kaur for possible stent placement. - AM aldosterone and renin levels given resistant HTN in setting of difficulty controlling on 4+ medications - requires lots of education regarding dietary and lifestyle management of hypertension [dietary consult placed for discussion re: easy foods to work with on a heart healthy and diabetic diet] 2) RIYA? - would benefit from outpatient testing for RIYA given positive response to screening questions per HPI - can consider overnight O2 sat monitoring or trial with CPAP in hospital 3) DM2 on insulin - Home regimen: - Toujeo 48 units nightly - Insulin Lispro 12 units with lunch, 20 with dinner - Nightly insulin adjusted to 80% of normal x1 dose given conversion from Toujeo to Lantus [35 units x 1 dose 08/22 pm]. - Nightly insulin going forward 40 units Lantus QPM while hospitalized, can be adjusted based on sugars and requirements - SSI ordered, 1:7 carb ratio, correction factor 25 4) CAD prevention - no CO/CAD hx - continue daily ASA 81 mg, pravastatin 20 mg - high risk for adverse cardiac events (14.8% 10 year risk of CO/) 5) Migraines with aura - sumatriptan continued from home regimen 6) Gout - probenacid continued from home DVT ppx: lovenox FEN/GI: Carb consistent, low sodium diet Code Status: Full Code Dispo: Med/Surg with Tele (2) Dizziness: (3) H/O: hysterectomy: (4) Insulin dependent diabetes mellitus: Admission and Anticipated Discharge Date Admission Date: August 24, 2019 Subjective Patient reports feeling well. She has no new complaints. She is interested in obtaining a stent for her renal artery to see if this will fix her hypertension. Review of Systems Review of Systems: All systems reviewed & are unremarkable except as noted in HPI & below Physical Exam Physical Exam: Constitutional: obese, in no apparent distress, sitting comfortably in bed. Eyes: EOMI, pupils equal and reactive bilaterally, no scleral icterus HENT: Thick neck Cardiac: RRR, no murmurs, gallops or rubs. Normal S1, S2 Pulm: CTA BL, no wheezes, rhonchi, crackles or rubs, moving air well throughout both lungs Abd: soft, nontender, nondistended, normal bowel sounds, no rebound or guarding Extremities: 2+ peripheral pulses, no edema Neuro: no focal deficits, moving all 4 limbs, A&Ox3 Results & Data Results & Data ([facility]) Vital Signs (Past 12 Hours) Vital Signs Temp Pulse Pulse Resp BP BP Pulse Ox 08/25/19 21:43 72 08/25/19 19:42 36.4 C L 81 18 204/84 H 95 08/25/19 17:42 78 16 199/81 H 94 08/25/19 17:27 67 18 198/118 H 95 08/25/19 16:57 36.7 C 73 16 201/78 H 97 08/25/19 16:15 66 16 254/92 H 98 08/25/19 16:00 68 16 224/78 H 98 08/25/19 15:45 66 16 221/78 H 97 08/25/19 15:30 63 16 242/92 H 96 08/25/19 11:28 36.7 C 71 20 211/96 H 204/83 H 94 PG Care Time/CCT Total # of Minutes Spent Total Time Spent with Patient: Total time spent is greater than 50% in coordination of care (as documented) at patient's floor/unit and/or counseling patient: Coding Level of Care Code 53747 Subseq Hosp Care Lvl 3 Diagnoses Hypertensive urgency I16.0 Dizziness R42 H/O: hysterectomy Z90.710 Insulin dependent diabetes mellitus Time Spent (min) 35
[2019-08-26] MEDS: OMEGA-3 (PURIFIED FISH OIL) 1 GM CAP PO SCH ×2 (07:48→21:21)
[2019-08-26] MEDS: cloNIDine HCL 0.1 MG TAB PO SCH ×2 (07:48→21:21)
[2019-08-26] MEDS: CHLORTHALIDONE 25 MG TAB PO SCH (07:49)
[2019-08-26] MEDS: ASPIRIN 81 MG ECTAB PO SCH (07:51)
[2019-08-26] MEDS: ENOXAPARIN INJ 40 MG/0.4 ML SYR SQ SCH (07:52)
[2019-08-26] MEDS: CALCIUM CARBONATE 1250MG TAB PO SCH ×2 (07:52→21:22)
[2019-08-26 08:56] LABS: BUN Creatinine Ratio 13.1 (10-20); Calcium 9.1 mg/dl (8.5-10.1); Creatinine Clr Calc Pharmacy 69.1 ml/min; Est GFR (African American) 59.6; Est GFR (Non-African American) 51.4; Potassium 3.6 mmol/L (3.5-5.1)
[2019-08-26] MEDS: METOPROLOL TARTRATE 1 MG/ML VIAL IV PRN ×2 (09:42→14:55)
[2019-08-26] MEDS: INSULIN ASPART 100 UNITS/ML 3 ML PEN SC SCH ×4 (10:22→21:29)
[2019-08-26] MEDS ORDERED: POTASSIUM CHLORIDE 20 MEQ TABCR PO STA (10:57)
--- NOTE | 2019-08-26 11:00 | Nephrology Consultation ---
Date of Consultation August 26, 2019 Assessment & Plan (1) Hypertension: Longstanding history of essential hypertension. Normal estimated glomerular filtration rate with nonnephrotic proteinuria consistent with diabetic nephropathy. Risk factors for uncontrolled blood pressure include obesity and possible underlying RIYA. Mild headaches reported but no symptoms from accelerated blood pressure readings at this time. Goals of care reviewed with the patient today. Prior evaluation includes renal angiography which was negative for renal artery stenosis. TSH and T4 normal. Renin and aldosterone levels are pending. I added a 24 hour urine for free cortisol today. She appears to be tolerating current medications well including losartan 100 milligrams daily, hydralazine 25 milligrams t.i.d., and clonidine 0.1 twice daily. Appropriately, chlorthalidone 25 milligrams was added yesterday and I suspect we will see some benefits from this medication today. Pending additional monitoring, she had not previously tolerated amlodipine well due to lower extremity edema, but an alternative consideration would be a trial of nifedipine now that chlorthalidone has been added. History of Present Illness Reason for Consultation: Accelerated hypertension Requesting Physician: Serjio Frank Attending Physician: Serjio Frank History of Present Illness Mrs. Brenda Styles is a 69-year-old female with obesity, BANUELOS, diabetes mellitus, and hypertension. She has never been previously evaluated by a otolaryngology physician. Glomerular filtration is preserved as manifested by a normal serum creatinine. She has albuminuria quantified at 741 micrograms/milligram earlier this month. Patient presented for routine follow-up with her primary care physician on August 09 and was found to have accelerated blood pressure at that time. Review of systems positive for increased frequency of intermittent headaches. Headaches are described as frontal pounding experienced several times a week typically right after waking up in the morning. Ibuprofen had been used for relief. Brenda has a history of headaches which been previously treated with sumatriptan. She has not been using sumatriptan for recent headaches. Headaches have improved since hospital admission. Concerns regarding potential obstructive sleep apnea had been expressed. Brenda is not aware of any other signs of sleep disordered breathing or obstructive sleep apnea. Her has not expressed any concerns. She does feel the quality of her sleep has been appropriate. She has had a waking up a few pounds over the course of the past year. She had not identified any other concerning changes in her health. Brenda had been maintained on losartan 100 milligrams daily and atenolol 50 milligrams daily for hypertension. Atenolol was reduced from 100 milligrams to 50 milligrams in January 2019 due to bradycardia. However, she denies any history of symptomatic bradycardia. BP was very well controlled at that time. Brenda states that she initially tolerated the dose adjustment well. She had not been monitoring her blood pressure at home was not aware of any change until blood pressure check in her physician's office. She was diagnosed with hypertension at least 5 years ago. Initial treatment included atenolol. Losartan was later added. She also has a prescription for p.r.n. Bumex for lower extremity edema. She has not used this medication in several months. The patient return to her primary care physician's office on August 18 blood pressure was found to be 200/90 mmHg. Clonidine was provided. BP improved to 150/90 mmHg. Amlodipine was provided by the medication was not tolerated due to increased lower extremity edema. Hydralazine was subsequently started. On August 22, the patient return for blood pressure check was found to be 190/90 mmHg. There was no improvement with clonidine in the patient was referred to the emergency department for additional evaluation. EKG demonstrated sinus bradycardia 54 beats per minute. Follow-up trans thoracic echocardiogram demonstrated normal LV size and function with a left ventricular ejection fraction 55-60%, there is no significant left ventricular hypertrophy, mild tricuspid regurgitation, RVSP 30-40. Since admission, treatment has included IV Cardizem as well as clonidine. Yesterday, chloride the salad own 25 milligrams was given in addition to spironolactone 25 milligrams. Patient then received 1 dose of amlodipine 5 milligrams yesterday evening. Unfortunately blood pressure remained elevated. Additional evaluation included an equivocal renal artery duplex. Patient underwent renal angiography yesterday which did not demonstrate significant evidence of renal artery stenosis. TSH was recently checked and found to be 2.4 with a T4 0.95. Serum renin aldosterone levels are pending. Patient denies any palpitations, flushing, change in activity tolerance, chest pain, headaches, or vision changes. Allergies Allergy/AdvReac Type Severity Reaction Status Date / Time No Known Drug Allergies AdvReac Verified 08/23/19 18:22 Home Medications Home Medications Medication Instructions Recorded Confirmed Type potassium chloride 10 mEq 10 meq PO DAILY #30 tab 08/05/18 08/23/19 Rx tablet,extended release aspirin 81 mg tablet,delayed 81 mg PO Q OTHER DAY tab 02/04/19 08/23/19 History release lancets 33 gauge ea 03/12/19 08/23/19 History sumatriptan succinate 50 mg tablet 50 mg PO DAILY PRN #6 box 04/05/19 08/23/19 Rx OneTouch Ultra Blue Test Strip #400 ea NS 05/19/19 08/23/19 Rx Toujeo SoloStar U-300 Insulin 300 48 units SQ HS #18 ml NS 07/01/19 08/23/19 Rx unit/mL (1.5 mL) subcutaneous pen atenolol 50 mg PO PM 08/23/19 08/23/19 History bumetanide 2 mg PO DAILY PRN 08/23/19 08/23/19 History calcium carbonate [Calcium 600] 600 mg PO AMPM 08/23/19 08/23/19 History clonidine HCl 0.1 mg tablet 0.1 mg PO BID #60 tab 08/23/19 08/23/19 Rx ibuprofen [Advil] 600 mg PO Q6H PRN 08/23/19 08/23/19 History insulin lispro [Humalog KwikPen 50 units SQ BIDM 08/23/19 08/23/19 History Insulin] loperamide [Imodium A-D] 2 mg PO QID PRN 08/23/19 08/23/19 History losartan 100 mg PO PM 08/23/19 08/23/19 History omega-3 fatty acids 1,000 mg PO BID 08/23/19 08/23/19 History pravastatin 20 mg PO PM 08/23/19 08/23/19 History probenecid 500 mg PO PM 08/23/19 08/23/19 History Patient History Medical History Common migraine without aura (Acute) Diabetes mellitus with kidney disease (Chronic) Gout (Acute) Headache (Acute) Hyperlipidemia (Chronic) Hypertension (Chronic) Lichen sclerosus et atrophicus (Acute) Nephrolithiasis (Acute) Nonalcoholic fatty liver disease (Acute) Type 2 diabetes mellitus without complications (Chronic) Surgical History Hx of dilation and curettage Hx of hysterectomy Hx of tonsillectomy Family History Mother Breast cancer Family/Other Patent ductus arteriosus Denies family history of Ovarian cancer Prostate cancer Myocardial infarction Colorectal cancer Social History Preferred Language: [place] Communication Ability: Effective 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 marital status: Current Living Situation: Spouse current occupational status: retired Other Information That Helps Us Care for You: No Feels Safe at Home: Yes Safety Concerns: Feels Safe At This Time Smoking Status: Never smoker Hx Alcohol Use: Yes Hx Substance Use: No Diet Comment: Does not follow any particular diet Dental Care, Regularly: Yes Physical Activity Frequency: Does not Exercise Seatbelt Use: always Review of Systems Review of Systems: All systems reviewed & are unremarkable except as noted in HPI & below Physical Exam Constitutional: well developed and + obese; not ill appearing and not edematous some evidence of hirsutism including facial hair growth Eyes: + anicteric sclerae; no eyelid abnormality and no periorbital abnormality ENMT: Mouth: no oral mucosal abnormality and oral mucous membranes not dry Neck: normal visual inspection and trachea midline Thyroid: normal thyroid Cardiovascular: Rate/Rhythm: regular rate Heart Sounds: normal S1 and normal S2; no murmur Vessels: no JVD Extremities: no edema Musculoskeletal: Extremities: extremities normal to inspection; no cyanosis and no petechiae Skin: normal turgor; no rashes Neurologic: Motor/Sensory: no tremor and no asterixis Psychiatric: Orientation: alert and oriented x 3 Results & Data Vital Signs (Past 12 Hours) Vital Signs Temp Pulse Pulse Resp BP BP Pulse Ox 08/26/19 10:16 82 178/102 H 08/26/19 09:41 93 H 190/106 H 08/26/19 07:48 36.7 C 87 19 208/84 H 94 08/26/19 04:00 36.9 C 82 16 196/70 H 94 08/25/19 23:59 76 Laboratory Results Laboratory Results - last 24 hr 08/25/19 08/25/19 08/25/19 11:49 17:07 20:48 Sodium Potassium Chloride Carbon Dioxide Anion Gap BUN Creatinine Est Cr Clr Drug Dosing Est GFR ( Amer) Est GFR (Non-Af Amer) BUN/Creatinine Ratio Glucose POC Glucose 99 100 H 101 H Calcium 08/26/19 08/26/19 08/26/19 07:08 08:28 11:03 Sodium 138 Potassium 3.6 Chloride 109 H Carbon Dioxide 21 Anion Gap 8.0 BUN 14 Creatinine 1.09 Est Cr Clr Drug Dosing 69.1 Est GFR ( Amer) 59.6 Est GFR (Non-Af Amer) 51.4 BUN/Creatinine Ratio 13.1 Glucose 229 H POC Glucose 84 113 H Calcium 9.1 PG Care Time/CCT Total # of Minutes Spent Total Time Spent with Patient: Total time spent is greater than 50% in coordination of care (as documented) at patient's floor/unit and/or counseling patient: Coding Level of Care Code 67436 Inpt Consult Level 4 Diagnoses Hypertension I10
[2019-08-26] MEDS: AMLODIPINE BESYLATE 5 MG TAB PO SCH ×2 (14:50→21:22)
[2019-08-26] MEDS ORDERED: SPIRONOLACTONE 25 MG TAB PO ONE (17:06)
[2019-08-26] MEDS: HydrALAZINE HCL 20 MG/ML VIAL IV PRN (20:06)
[2019-08-26] MEDS ORDERED: AMLODIPINE BESYLATE 5 MG TAB PO SCH (21:00)
[2019-08-26] MEDS: PRAVASTATIN SOD 20 MG TAB PO SCH (21:21)
[2019-08-26] MEDS: PROBENECID 500 MG TAB PO SCH (21:22)
[2019-08-26] MEDS: LOSARTAN POTASSIUM 50 MG TAB PO SCH (21:23)
[2019-08-26] MEDS: INSULIN GLARGINE SOLOSTAR 100 UNITS/ML 3 ML PEN SC SCH (21:29)
--- NOTE | 2019-08-26 22:26 | Hospitalist Progress Note ---
Date of Service August 26, 2019 Assessment & Plan (1) Hypertensive urgency: 69 yo F with PMH DM2 on insulin, recent HTN diagnosis uncontrolled on 4+ medications, admitted for HTNive urgency and BP control. 1) HTNive Urgency - no signs of end organ failure or damage. Pressures of 200/90 on admission. Received 10 mg IV Hydralazine x2 in ED, lowering BP to 180/90. - Outpatient regimen: - Clonidine 0.1 mg PO BID (new as of 08/22) - Losartan 100 mg PO PM - Bumex 2 mg PO daily PRN Swelling - Atenolol 50 mg PO PM Patient is now on: Losartan, Clonidine Spironolactone Chlorthalidone amlodipine. Will continue to monitor BP. Renal artery stenosis has been ruled out by arteriogram. obtaining renin aldosterone as well as 24 hour cortisol. consulted nephro. Appreciate input. - requires lots of education regarding dietary and lifestyle management of hypertension [dietary consult placed for discussion re: easy foods to work with on a heart healthy and diabetic diet] 2) RIYA? - would benefit from outpatient testing for RIYA given positive response to screening questions per HPI - will do overnight oxygen sat. 3) DM2 on insulin - Home regimen: - Toujeo 48 units nightly - Insulin Lispro 12 units with lunch, 20 with dinner - Nightly insulin adjusted to 80% of normal x1 dose given conversion from Toujeo to Lantus [35 units x 1 dose 08/22 pm]. - Nightly insulin going forward 40 units Lantus QPM while hospitalized, can be adjusted based on sugars and requirements - SSI ordered, 1:7 carb ratio, correction factor 25 4) CAD prevention - no [place]/CAD hx - continue daily ASA 81 mg, pravastatin 20 mg - high risk for adverse cardiac events (14.8% 10 year risk of [place]/) 5) Migraines with aura - sumatriptan continued from home regimen 6) Gout - probenacid continued from home DVT ppx: lovenox FEN/GI: Carb consistent, low sodium diet Code Status: Full Code (2) Dizziness: (3) H/O: hysterectomy: (4) Insulin dependent diabetes mellitus: Admission and Anticipated Discharge Date Admission Date: August 24, 2019 Subjective Patient has no new symptoms. She is frustrated that she has not improved. Review of Systems Review of Systems: All systems reviewed & are unremarkable except as noted in HPI & below Physical Exam Physical Exam: Constitutional: obese, in no apparent distress, sitting comfortably in bed. Eyes: EOMI, pupils equal and reactive bilaterally, no scleral icterus HENT: Thick neck Cardiac: RRR, no murmurs, gallops or rubs. Normal S1, S2 Pulm: CTA BL, no wheezes, rhonchi, crackles or rubs, moving air well throughout both lungs Abd: soft, nontender, nondistended, normal bowel sounds, no rebound or guarding Extremities: 2+ peripheral pulses, no edema Neuro: no focal deficits, moving all 4 limbs, A&Ox3 Results & Data Results & Data ([facility]) Vital Signs (Past 12 Hours) Vital Signs Temp Pulse Pulse Resp BP BP Pulse Ox 08/26/19 21:42 96 H 08/26/19 19:35 36.7 C 86 18 194/102 H 95 08/26/19 18:16 86 185/82 H 08/26/19 15:19 36.7 C 77 18 208/104 H 190/110 H 96 08/26/19 14:49 88 185/113 H 08/26/19 11:20 36.9 C 79 19 202/128 H 190/131 H 95 Pulse Ox 08/26/19 21:42 99 08/26/19 19:35 08/26/19 18:16 08/26/19 15:19 08/26/19 14:49 08/26/19 11:20 PG Care Time/CCT Total # of Minutes Spent Total Time Spent with Patient: Total time spent is greater than 50% in coordination of care (as documented) at patient's floor/unit and/or counseling patient: Coding Level of Care Code 75314 Subseq Hosp Care Lvl 3 Diagnoses Hypertensive urgency I16.0 Dizziness R42 H/O: hysterectomy Z90.710 Insulin dependent diabetes mellitus Time Spent (min) 35
[2019-08-27 06:51] LABS: BUN Creatinine Ratio 18.5 (10-20); Calcium 9.3 mg/dl (8.5-10.1); Creatinine Clr Calc Pharmacy 67.1 ml/min; Est GFR (African American) 58.3; Est GFR (Non-African American) 50.3; Magnesium 1.7 mg/dl (1.8-2.4); Potassium 3.5 mmol/L (3.5-5.1)
[2019-08-27] MEDS: OMEGA-3 (PURIFIED FISH OIL) 1 GM CAP PO SCH ×2 (08:36→20:23)
[2019-08-27] MEDS: SPIRONOLACTONE 100 MG TAB PO SCH (08:37)
[2019-08-27] MEDS: CALCIUM CARBONATE 1250MG TAB PO SCH ×2 (08:37→20:24)
[2019-08-27] MEDS: AMLODIPINE BESYLATE 5 MG TAB PO SCH ×2 (08:37→20:22)
[2019-08-27] MEDS: CHLORTHALIDONE 25 MG TAB PO SCH (08:38)
[2019-08-27] MEDS: ENOXAPARIN INJ 40 MG/0.4 ML SYR SQ SCH (08:39)
[2019-08-27] MEDS: cloNIDine HCL 0.1 MG TAB PO SCH ×2 (08:44→20:58)
[2019-08-27] MEDS: INSULIN ASPART 100 UNITS/ML 3 ML PEN SC SCH ×4 (09:11→20:23)
[2019-08-27] MEDS ORDERED: POTASSIUM CHLORIDE 20 MEQ TABCR PO STA (09:35)
[2019-08-27] MEDS: MAGNESIUM OXIDE 400 MG TAB PO SCH ×2 (09:59→20:20)
--- NOTE | 2019-08-27 10:33 | Nephrology Progress Note ---
Date of Service August 27, 2019 Assessment & Plan (1) Hypertension: Longstanding history of essential hypertension. Diabetic nephropathy with normal estimated glomerular filtration rate and nonnephrotic proteinuria. Risk factors for uncontrolled blood pressure include obesity. Mild headaches reported but no symptoms from accelerated blood pressure readings at this time. Goals of care reviewed with the patient today. Prior evaluation includes renal angiography which was negative for renal artery stenosis. Nocturnal oximetry without desaturations. TSH and T4 normal. Renin and aldosterone levels are pending. 24 hour urine for free cortisol today to complete today. Serum free metanephrine pending. Unable to run urine catecholamines on sample used for cortisol. A follow up assessment with 24 hour urine metanephrines may be considered but clinical suspicion for pheochromocyt al remains low. BP seems to be responding to MRA therapy. I would suspect possible hypercortisolism or hyperaldo as contributing. She appears to be tolerating current medications well including losartan 100 milligrams daily, hydralazine 25 milligrams t.i.d., and clonidine 0.1 twice daily. Chlorthalidone 25 milligrams was added 08/25/19 and I suspect we will continue to see some of the added benefits from this medication today. She previously did not tolerate amlodipine well due to LE edema but seems to be tolerating 5 mg twice daily at this time. Spironolactone 50 mg daily was added yesterday and increased to 100 mg daily this AM. Hopefully, if there is good response to MRA therapy, hydralazine and clonidine can be weaned. Will monitor. Plan of care was updated with Dr. Frank today. Admission and Anticipated Discharge Date Admission Date: August 24, 2019 Subjective No acute events overnight. Brenda feels well this morning. She reports a mild headache early in the morning but this has improved. No edema. She is breathing comfortably. No palpitations, flushing, chest pain. Out of bed and feels well. No lightheadedness or dizziness. BP equal in both arms. No desaturations noted on nocturnal O2 monitor. Review of Systems Review of Systems: All systems reviewed & are unremarkable except as noted in HPI & below Physical Exam Constitutional: well developed and + obese; not ill appearing and not edematous Eyes: + anicteric sclerae; no eyelid abnormality and no periorbital abnormality ENMT: Mouth: no oral mucosal abnormality and oral mucous membranes not dry Neck: normal visual inspection and trachea midline Thyroid: normal thyroid Cardiovascular: Rate/Rhythm: regular rate Heart Sounds: normal S1 and normal S2; no murmur Vessels: no JVD Extremities: no edema Musculoskeletal: Extremities: extremities normal to inspection; no cyanosis and no petechiae Skin: normal turgor; no rashes Neurologic: Motor/Sensory: no tremor and no asterixis Psychiatric: Orientation: alert and oriented x 3 Results & Data ([facility]) Vital Signs (Past 12 Hours) Vital Signs Temp Pulse Resp BP BP Pulse Ox 08/27/19 07:21 36.7 C 84 18 172/80 H 96 08/27/19 04:33 36.8 C 90 165/90 H 96 08/26/19 23:08 36.5 C 95 H 17 178/95 H 96 Laboratory Results Laboratory Results - last 24 hr 08/26/19 08/26/19 08/26/19 11:03 16:37 20:27 Sodium Potassium Chloride Carbon Dioxide Anion Gap BUN Creatinine Est Cr Clr Drug Dosing Est GFR ( Amer) Est GFR (Non-Af Amer) BUN/Creatinine Ratio Glucose POC Glucose 113 H 103 H 94 Calcium Magnesium Plasma Metanephrine Plasma Normetanephrine Plas Total Metaneph 08/27/19 08/27/19 08/27/19 05:59 05:59 07:38 Sodium 140 Potassium 3.5 Chloride 108 H Carbon Dioxide 26 Anion Gap 6.0 BUN 21 H Creatinine 1.11 Est Cr Clr Drug Dosing 67.1 Est GFR ( Amer) 58.3 Est GFR (Non-Af Amer) 50.3 BUN/Creatinine Ratio 18.5 Glucose 93 POC Glucose 101 H Calcium 9.3 Magnesium 1.7 L Plasma Metanephrine Pending Plasma Normetanephrine Pending Plas Total Metaneph Pending PG Care Time/CCT Total # of Minutes Spent Total Time Spent with Patient: Total time spent is greater than 50% in coordination of care (as documented) at patient's floor/unit and/or counseling patient: Coding Level of Care Code 19406 Subseq Hosp Care Lvl 3 Diagnoses Hypertension I10
[2019-08-27] MEDS: LOSARTAN POTASSIUM 50 MG TAB PO SCH (20:21)
[2019-08-27] MEDS: PRAVASTATIN SOD 20 MG TAB PO SCH (20:21)
[2019-08-27] MEDS: PROBENECID 500 MG TAB PO SCH (20:23)
[2019-08-27] MEDS: INSULIN GLARGINE SOLOSTAR 100 UNITS/ML 3 ML PEN SC SCH (20:25)
--- NOTE | 2019-08-27 22:14 | Hospitalist Progress Note ---
Date of Service August 27, 2019 Assessment & Plan (1) Hypertensive urgency: 69 yo F with PMH DM2 on insulin, recent HTN diagnosis uncontrolled on 4+ medications, admitted for HTNive urgency and BP control. 1) HTNive Urgency - no signs of end organ failure or damage. Pressures of 200/90 on admission. Received 10 mg IV Hydralazine x2 in ED, lowering BP to 180/90. - Outpatient regimen: - Clonidine 0.1 mg PO BID (new as of 08/22) - Losartan 100 mg PO PM - Bumex 2 mg PO daily PRN Swelling - Atenolol 50 mg PO PM Patient is now on: Losartan, Clonidine Spironolactone Chlorthalidone amlodipine. will increase spironolactone to 100mg PO daily. Will continue to monitor BP. Renal artery stenosis has been ruled out by arteriogram. obtaining renin aldosterone as well as 24 hour cortisol. consulted nephro. Appreciate input. - requires lots of education regarding dietary and lifestyle management of hypertension [dietary consult placed for discussion re: easy foods to work with on a heart healthy and diabetic diet] 2) RIYA? - would benefit from outpatient testing for RIYA given positive response to screening questions per HPI - will do overnight oxygen sat. 3) DM2 on insulin - Home regimen: - Toujeo 48 units nightly - Insulin Lispro 12 units with lunch, 20 with dinner - Nightly insulin adjusted to 80% of normal x1 dose given conversion from Toujeo to Lantus [35 units x 1 dose 08/22 pm]. - Nightly insulin going forward 40 units Lantus QPM while hospitalized, can be adjusted based on sugars and requirements - SSI ordered, 1:7 carb ratio, correction factor 25 4) CAD prevention - no [place]/CAD hx - continue daily ASA 81 mg, pravastatin 20 mg - high risk for adverse cardiac events (14.8% 10 year risk of [place]/) 5) Migraines with aura - sumatriptan continued from home regimen 6) Gout - probenacid continued from home DVT ppx: lovenox FEN/GI: Carb consistent, low sodium diet Code Status: Full Code (2) Dizziness: (3) H/O: hysterectomy: (4) Insulin dependent diabetes mellitus: Admission and Anticipated Discharge Date Admission Date: August 24, 2019 Subjective 69 yo female reports feeling well. He has no new comlaints at this time. Review of Systems Review of Systems: All systems reviewed & are unremarkable except as noted in HPI & below Physical Exam Physical Exam: Constitutional: obese, in no apparent distress, sitting comfortably in bed. Eyes: EOMI, pupils equal and reactive bilaterally, no scleral icterus HENT: Thick neck Cardiac: RRR, no murmurs, gallops or rubs. Normal S1, S2 Pulm: CTA BL, no wheezes, rhonchi, crackles or rubs, moving air well throughout both lungs Abd: soft, nontender, nondistended, normal bowel sounds, no rebound or guarding Extremities: 2+ peripheral pulses, no edema Neuro: no focal deficits, moving all 4 limbs, A&Ox3 Results & Data Results & Data ([facility]) Vital Signs (Past 12 Hours) Vital Signs Temp Pulse Resp BP Pulse Ox 08/27/19 18:47 36.9 C 100 H 18 186/91 H 95 08/27/19 14:57 36.4 C L 95 H 20 183/97 H 96 08/27/19 12:00 36.8 C 80 16 164/76 H 96 PG Care Time/CCT Total # of Minutes Spent Total Time Spent with Patient: Total time spent is greater than 50% in coordination of care (as documented) at patient's floor/unit and/or counseling patient: Coding Level of Care Code 73222 Subseq Hosp Care Lvl 2 Diagnoses Hypertensive urgency I16.0 Dizziness R42 H/O: hysterectomy Z90.710 Insulin dependent diabetes mellitus Time Spent (min) 25
[2019-08-28 02:44] LABS: Renin Activity 0.16 ng/mL/h (0.25-5.82)
[2019-08-28 06:33] LABS: Albumin Level 3.2 gm/dl (3.4-5.0); BUN Creatinine Ratio 20.7 (10-20); Calcium 9.2 mg/dl (8.5-10.1); Est GFR (Non-African American) 44.8; Phosphorus 4.1 mg/dl (2.5-4.9); Potassium 3.6 mmol/L (3.5-5.1)
[2019-08-28] MEDS: INSULIN ASPART 100 UNITS/ML 3 ML PEN SC SCH ×4 (07:42→21:29)
[2019-08-28] MEDS: ENOXAPARIN INJ 40 MG/0.4 ML SYR SQ SCH (07:47)
[2019-08-28] MEDS: cloNIDine HCL 0.1 MG TAB PO SCH ×2 (07:51→21:27)
[2019-08-28] MEDS: CALCIUM CARBONATE 1250MG TAB PO SCH ×2 (07:51→21:26)
[2019-08-28] MEDS: SPIRONOLACTONE 100 MG TAB PO SCH ×2 (07:51→10:49)
[2019-08-28] MEDS: CHLORTHALIDONE 25 MG TAB PO SCH (07:53)
[2019-08-28] MEDS: AMLODIPINE BESYLATE 5 MG TAB PO SCH ×2 (07:53→21:26)
[2019-08-28] MEDS: MAGNESIUM OXIDE 400 MG TAB PO SCH ×2 (07:53→21:28)
[2019-08-28] MEDS: OMEGA-3 (PURIFIED FISH OIL) 1 GM CAP PO SCH ×2 (07:53→21:27)
[2019-08-28] MEDS: ASPIRIN 81 MG ECTAB PO SCH (07:53)
[2019-08-28] MEDS ORDERED: SPIRONOLACTONE 25 MG TAB PO ONE (11:00)
--- NOTE | 2019-08-28 11:12 | Nephrology Progress Note ---
Date of Service August 28, 2019 Assessment & Plan (1) Hypertension: Brenda has Longstanding history of essential hypertension. Diabetic nephropathy with normal estimated glomerular filtration rate and nonnephrotic proteinuria. Risk factors for uncontrolled blood pressure include obesity. Renal angiography on 08/25/19 was negative for renal artery stenosis. Nocturnal oximetry without desaturations. TSH and T4 normal. Renin and aldosterone levels are low, 24 hour urine for free cortisol pending. Serum free metanephrine pending. Unable to run urine catecholamines on sample used for cortisol. A follow up assessment with 24 hour urine metanephrines may be considered but clinical suspicion for pheochromocytoma remains low. BP seems to be responding to MRA therapy. S he uspect possible hypercortisolism or hyperaldo as contributing. She appears to be tolerating current medications. She previously did not tolerate amlodipine well due to LE edema but seems to be tolerating 5 mg twice daily at this time. Spironolactone 50 mg daily was added on 08/26/19 and increased to 100 mg. Hopefully, if there is good response to MRA therapy, hydralazine and clonidine can be weaned. Will monitor. Plan of care was updated with Dr. Frank. --increase spironolactone to 150 and plan to increase up to 200 daily if tolerated --increase hydralazine to 50 milligram t.i.d., keep other medications for now --if blood pressure improves will try to discontinue clonidine and hydralazine as much as possible --workup pending Will follow Admission and Anticipated Discharge Date Admission Date: August 24, 2019 Miracle Gross was seen and examined room this morning. Overall she feels about the same except reports occasional palpitation and had 2 episodes of loose bowel mo vement since yesterday. Denies headache, dizziness, visual changes, chest pain, shortness of breath, diaphoresis. Blood pressure still elevated however there is some trend in improvement. 24 hour urine free cortisol still pending. Review of Systems Review of Systems: All systems reviewed & are unremarkable except as noted in HPI & below Physical Exam Constitutional: well developed and well nourished; no acute distress Respiratory: normal respiratory effort, lungs clear to auscultation Cardiovascular: RRR, no murmur, no edema Neurologic: moves all extremities and awake; not confused Psychiatric: A+Ox3, euthymic affect Results & Data ([facility]) Vital Signs (Past 12 Hours) Vital Signs Temp Pulse Pulse Resp BP Pulse Ox 08/28/19 07:32 36.5 C 82 18 159/74 H 96 08/28/19 03:50 36.6 C 80 16 161/73 H 92 08/27/19 23:32 94 H PG Care Time/CCT Total # of Minutes Spent Total Time Spent with Patient: Total time spent is greater than 50% in coordination of care (as documented) at patient's floor/unit and/or counseling patient: Coding Level of Care Code 14968 Subseq Hosp Care Lvl 3 Diagnoses Hypertension I10
[2019-08-28] MEDS: HydrALAZINE TAB 50 MG TAB PO SCH ×2 (13:56→21:26)
[2019-08-28] MEDS: LOSARTAN POTASSIUM 50 MG TAB PO SCH (21:27)
[2019-08-28] MEDS: PROBENECID 500 MG TAB PO SCH (21:27)
[2019-08-28] MEDS: PRAVASTATIN SOD 20 MG TAB PO SCH (21:28)
[2019-08-28] MEDS: INSULIN GLARGINE SOLOSTAR 100 UNITS/ML 3 ML PEN SC SCH (21:28)
--- NOTE | 2019-08-28 23:45 | Hospitalist Progress Note ---
Date of Service August 28, 2019 Assessment & Plan (1) Hypertensive urgency: 69 yo F with PMH DM2 on insulin, recent HTN diagnosis uncontrolled on 4+ medications, admitted for HTNive urgency and BP control. 1) HTNive Urgency - no signs of end organ failure or damage. Pressures of 200/90 on admission. Received 10 mg IV Hydralazine x2 in ED, lowering BP to 180/90. - Outpatient regimen: - Clonidine 0.1 mg PO BID (new as of 08/22) - Losartan 100 mg PO PM - Bumex 2 mg PO daily PRN Swelling - Atenolol 50 mg PO PM Patient is now on: Losartan 100 mg PO BID Clonidine 0.1 BID Spironolactone 150 MG daily Chlorthalidone 25 MG daily amlodipine 5 mg po bid Will continue to monitor BP. Renal artery stenosis has been ruled out by arteriogram. obtaining renin aldosterone as well as 24 hour cortisol. consulted nephro. Appreciate input. - requires lots of education regarding dietary and lifestyle management of hypertension [dietary consult placed for discussion re: easy foods to work with on a heart healthy and diabetic diet] 2) RIYA? - would benefit from outpatient testing for RIAY given positive response to screening questions per HPI - will do overnight oxygen sat: this was negative, 3) DM2 on insulin - Home regimen: - Toujeo 48 units nightly - Insulin Lispro 12 units with lunch, 20 with dinner - Nightly insulin adjusted to 80% of normal x1 dose given conversion from Toujeo to Lantus [35 units x 1 dose 08/22 pm]. - Nightly insulin going forward 40 units Lantus QPM while hospitalized, can be adjusted based on sugars and requirements - SSI ordered, 1:7 carb ratio, correction factor 25 4) CAD prevention - no VT/CAD hx - continue daily ASA 81 mg, pravastatin 20 mg - high risk for adverse cardiac events (14.8% 10 year risk of VT/) 5) Migraines with aura - sumatriptan continued from home regimen 6) Gout - probenacid continued from home DVT ppx: lovenox FEN/GI: Carb consistent, low sodium diet Code Status: Full Code (2) Dizziness: (3) H/O: hysterectomy: (4) Insulin dependent diabetes mellitus: Admission and Anticipated Discharge Date Admission Date: August 24, 2019 Subjective Pateint remains asymptomatic, her main issue is that she has noticed 2 days of dark stools accompanied by normal color loose stools thereafter. Patient denies any fatigue, nausea, vomting. Review of Systems Review of Systems: All systems reviewed & are unremarkable except as noted in HPI & below Physical Exam Physical Exam: Constitutional: obese, in no apparent distress, sitting comfortably in bed. Eyes: EOMI, pupils equal and reactive bilaterally, no scleral icterus HENT: Thick neck Cardiac: RRR, no murmurs, gallops or rubs. Normal S1, S2 Pulm: CTA BL, no wheezes, rhonchi, crackles or rubs, moving air well throughout both lungs Abd: soft, nontender, nondistended, normal bowel sounds, no rebound or guarding Extremities: 2+ peripheral pulses, no edema Neuro: no focal deficits, moving all 4 limbs, A&Ox3 Results & Data Results & Data ([facility]) Vital Signs (Past 12 Hours) Vital Signs Temp Pulse Resp BP BP Pulse Ox 08/28/19 23:05 36.4 C L 82 17 145/79 H 94 08/28/19 18:41 37.0 C 77 18 153/82 H 97 08/28/19 15:16 36.8 C 96 H 18 155/84 H 96 08/28/19 12:00 36.4 C L 90 18 149/84 H 96 PG Care Time/CCT Total # of Minutes Spent Total Time Spent with Patient: Total time spent is greater than 50% in coordination of care (as documented) at patient's floor/unit and/or counseling patient: Coding Level of Care Code 18418 Subseq Hosp Care Lvl 2 Diagnoses Hypertensive urgency I16.0 Dizziness R42 H/O: hysterectomy Z90.710 Insulin dependent diabetes mellitus Time Spent (min) 25
[2019-08-29 06:13] LABS: Hemoglobin 14.6 g/dL (12.0-16.0); Mean Corpuscular Hgb Conc 32.4 g/dL (32-36); Mean Corpuscular Volume 89.3 fL (80-100); Platelet Count 293 K/uL (130-400); RDW Coefficient of Variation 14.5 % (11.5-14.5); RDW Standard Deviation 47.2 fL (36.4-46.3); Red Blood Count 5.04 M/uL (4.2-5.4); White Blood Count 11.34 K/uL (4.8-10.8)
[2019-08-29 06:37] LABS: Albumin Level 3.2 gm/dl (3.4-5.0); Calcium 8.9 mg/dl (8.5-10.1); Creatinine Clr Calc Pharmacy 60.9 ml/min; Est GFR (Non-African American) 44.8; Potassium 3.7 mmol/L (3.5-5.1)
[2019-08-29 06:49] LABS: Ferritin 24.1 ng/ml (8-388); Phosphorus 4.1 mg/dl (2.5-4.9)
[2019-08-29] MEDS: INSULIN ASPART 100 UNITS/ML 3 ML PEN SC SCH ×4 (07:56→21:06)
[2019-08-29] MEDS: ENOXAPARIN INJ 40 MG/0.4 ML SYR SQ SCH (08:12)
[2019-08-29] MEDS: SPIRONOLACTONE 100 MG TAB PO SCH (08:13)
[2019-08-29] MEDS: AMLODIPINE BESYLATE 5 MG TAB PO SCH ×2 (08:14→21:02)
[2019-08-29] MEDS: HydrALAZINE TAB 50 MG TAB PO SCH ×3 (08:14→21:04)
[2019-08-29] MEDS: CALCIUM CARBONATE 1250MG TAB PO SCH ×2 (08:14→21:01)
[2019-08-29] MEDS: cloNIDine HCL 0.1 MG TAB PO SCH ×2 (08:14→21:04)
[2019-08-29] MEDS: MAGNESIUM OXIDE 400 MG TAB PO SCH ×2 (08:14→21:02)
[2019-08-29] MEDS: CHLORTHALIDONE 25 MG TAB PO SCH (08:14)
[2019-08-29] MEDS: OMEGA-3 (PURIFIED FISH OIL) 1 GM CAP PO SCH ×2 (08:14→21:01)
[2019-08-29] MEDS ORDERED: SPIRONOLACTONE 25 MG TAB PO ONE (10:30)
--- NOTE | 2019-08-29 11:27 | Nephrology Progress Note ---
Date of Service August 29, 2019 Assessment & Plan (1) Hypertension: Brenda has Longstanding history of essential hypertension. Diabetic nephropathy with normal estimated glomerular filtration rate and nonnephrotic proteinuria. Risk factors for uncontrolled blood pressure include obesity. Renal angiography on 08/25/19 was negative for renal artery stenosis. Nocturnal oximetry without desaturations. TSH and T4 normal. Renin and aldosterone levels are low, 24 hour urine for free cortisol pending. Serum free metanephrine pending. Unable to run urine catecholamines on sample used for cortisol. A follow up assessment with 24 hour urine metanephrines may be considered but clinical suspicion for pheochromocytoma remains low. BP seems to be responding to MRA therapy. S he suspect possible hypercortisolism as contributing. She appears to be tolerating current medications. She previously did not tolerate amlodipine well due to LE edema but seems to be tolerating 5 mg twice daily at this time. Spironolactone 50 mg daily was added on 08/26/19 and increased to 100 mg. Hopefully, if there is good response to MRA therapy, hydralazine and clonidine can be weaned. Will monitor. Plan of care was updated with Dr. Frank. --increase spironolactone to 200 mg/d and keep other medications for now --if blood pressure improves will try to discontinue clonidine and hydralazine as much as possible --workup pending --okay to be discharged with close outpatient lab monitoring, patient should have renal panel done in next 2-3 days mainly to monitor the electrolyte and have follow-up with Dr. Hopkins in clinic later next week. Will follow while inpatient the all Admission and Anticipated Discharge Date Admission Date: August 24, 2019 Miracle Gutierrez was seen and examined room this morning. Overall she feels about the same except reports occasional palpitation and loose bowel movement since yesterday. Denies headache, dizziness, visual changes, chest pain, shortness of breath, diaphoresis. Blood pressure much improved, systolic blood pressure staying around 150s over last more than 24 hours, 24 hour urine free cortisol still pending. Review of Systems Review of Systems: All systems reviewed & are unremarkable except as noted in HPI & below Physical Exam Constitutional: well developed and well nourished; no acute distress Respiratory: normal respiratory effort, lungs clear to auscultation Cardiovascular: RRR, no murmur, no edema Neurologic: moves all extremities and awake; not confused Psychiatric: A+Ox3, euthymic affect Results & Data ([facility]) Vital Signs (Past 12 Hours) Vital Signs Temp Pulse Resp BP Pulse Ox 08/29/19 07:39 36.5 C 83 17 150/78 H 94 08/29/19 03:43 36.7 C 78 18 161/71 H 94 PG Care Time/CCT Total # of Minutes Spent Total Time Spent with Patient: Total time spent is greater than 50% in coordination of care (as documented) at patient's floor/unit and/or counseling patient: Coding Level of Care Code 28766 Subseq Hosp Care Lvl 3 Diagnoses Hypertension I10
[2019-08-29] MEDS ORDERED: LOPERAMIDE HCL 2 MG CAP PO PRN (12:21)
[2019-08-29] MEDS: PROBENECID 500 MG TAB PO SCH (21:01)
[2019-08-29] MEDS: PRAVASTATIN SOD 20 MG TAB PO SCH (21:01)
[2019-08-29] MEDS: LOSARTAN POTASSIUM 50 MG TAB PO SCH (21:03)
[2019-08-29] MEDS: INSULIN GLARGINE SOLOSTAR 100 UNITS/ML 3 ML PEN SC SCH (21:06)
--- NOTE | 2019-08-29 22:48 | Hospitalist Progress Note ---
Date of Service August 29, 2019 Assessment & Plan (1) Hypertensive urgency: 69 yo F with PMH DM2 on insulin, recent HTN diagnosis uncontrolled on 4+ medications, admitted for HTNive urgency and BP control. 1) HTNive Urgency - no signs of end organ failure or damage. Pressures of 200/90 on admission. Received 10 mg IV Hydralazine x2 in ED, lowering BP to 180/90. - Outpatient regimen: - Clonidine 0.1 mg PO BID (new as of 08/22) - Losartan 100 mg PO PM - Bumex 2 mg PO daily PRN Swelling - Atenolol 50 mg PO PM Patient is now on: Losartan 100 mg PO BID Clonidine 0.1 BID Spironolactone 200 MG daily Chlorthalidone 25 MG daily amlodipine 5 mg po bid Will continue to monitor BP. Renal artery stenosis has been ruled out by arteriogram. obtaining renin aldosterone as well as 24 hour cortisol. BP appears better controlled consulted nephro. Appreciate input. - requires lots of education regarding dietary and lifestyle management of hypertension [dietary consult placed for discussion re: easy foods to work with on a heart healthy and diabetic diet] 2) RIYA? - would benefit from outpatient testing for RIYA given positive response to screening questions per HPI - will do overnight oxygen sat: this was negative, 3) DM2 on insulin - Home regimen: - Toujeo 48 units nightly - Insulin Lispro 12 units with lunch, 20 with dinner - Nightly insulin adjusted to 80% of normal x1 dose given conversion from Toujeo to Lantus [35 units x 1 dose 08/22 pm]. - Nightly insulin going forward 40 units Lantus QPM while hospitalized, can be adjusted based on sugars and requirements - SSI ordered, 1:7 carb ratio, correction factor 25 4) CAD prevention - no VA/CAD hx - continue daily ASA 81 mg, pravastatin 20 mg - high risk for adverse cardiac events (14.8% 10 year risk of VA/) 5) Migraines with aura - sumatriptan continued from home regimen 6) Gout - probenacid continued from home 7) chronic diarrhea: doubt infectious. ordered one dose of loperamide. will monitor. will benefit from outpatient colonscopy. DVT ppx: lovenox FEN/GI: Carb consistent, low sodium diet Code Status: Full Code (2) Dizziness: (3) H/O: hysterectomy: (4) Insulin dependent diabetes mellitus: Admission and Anticipated Discharge Date Admission Date: August 24, 2019 Subjective 69 yo female reports having 2 loose stools this AM. She reports that she has been taking loperamide on and off as an outpatient for the past few months. She reports that at home she may get an attack and have to use loperamide for about 3 days. She states it occurs about 6 times in a month Review of Systems Review of Systems: All systems reviewed & are unremarkable except as noted in HPI & below Physical Exam Physical Exam: Constitutional: obese, in no apparent distress, sitting comfortably in bed. Eyes: EOMI, pupils equal and reactive bilaterally, no scleral icterus HENT: Thick neck Cardiac: RRR, no murmurs, gallops or rubs. Normal S1, S2 Pulm: CTA BL, no wheezes, rhonchi, crackles or rubs, moving air well throughout both lungs Abd: soft, nontender, nondistended, normal bowel sounds, no rebound or guarding Extremities: 2+ peripheral pulses, no edema Neuro: no focal deficits, moving all 4 limbs, A&Ox3 Results & Data Results & Data ([facility]) Vital Signs (Past 12 Hours) Vital Signs Temp Pulse Resp BP Pulse Ox 08/29/19 18:36 36.7 C 86 18 144/81 H 94 08/29/19 15:22 36.7 C 81 18 150/79 H 95 08/29/19 11:40 36.6 C 87 19 153/82 H 95 PG Care Time/CCT Total # of Minutes Spent Total Time Spent with Patient: Total time spent is greater than 50% in coordination of care (as documented) at patient's floor/unit and/or counseling patient: Coding Level of Care Code 92337 Subseq Hosp Care Lvl 3 Diagnoses Hypertensive urgency I16.0 Dizziness R42 H/O: hysterectomy Z90.710 Insulin dependent diabetes mellitus Time Spent (min) 35
[2019-08-30 06:39] LABS: Albumin Level 3.2 gm/dl (3.4-5.0); BUN Creatinine Ratio 26.7 (10-20); Creatinine Clr Calc Pharmacy 54.6 ml/min; Est GFR (African American) 45.6; Est GFR (Non-African American) 39.3; Potassium 3.9 mmol/L (3.5-5.1)
[2019-08-30 06:40] LABS: Phosphorus 3.9 mg/dl (2.5-4.9)
[2019-08-30] MEDS: HydrALAZINE TAB 50 MG TAB PO SCH (07:59)
[2019-08-30] MEDS: ENOXAPARIN INJ 40 MG/0.4 ML SYR SQ SCH (07:59)
[2019-08-30] MEDS: cloNIDine HCL 0.1 MG TAB PO SCH (07:59)
[2019-08-30] MEDS: MAGNESIUM OXIDE 400 MG TAB PO SCH (07:59)
[2019-08-30] MEDS: CALCIUM CARBONATE 1250MG TAB PO SCH (08:00)
[2019-08-30] MEDS: OMEGA-3 (PURIFIED FISH OIL) 1 GM CAP PO SCH (08:00)
[2019-08-30] MEDS: AMLODIPINE BESYLATE 5 MG TAB PO SCH (08:00)
[2019-08-30] MEDS: INSULIN ASPART 100 UNITS/ML 3 ML PEN SC SCH (08:01)
[2019-08-30] MEDS: ASPIRIN 81 MG ECTAB PO SCH (08:01)
[2019-08-30] MEDS: CHLORTHALIDONE 25 MG TAB PO SCH (08:01)
[2019-08-30] MEDS ORDERED: SPIRONOLACTONE 100 MG TAB PO SCH (09:00)
[2019-08-30 09:04] LABS: Basophils # (auto) 0.06 K/uL (0-0.2); Basophils % (auto) 0.6 %; Eosinophils # (auto) 0.52 K/uL (0-0.5); Eosinophils % (auto) 4.9 %; Hematocrit (blood only) 42.6 % (37-47); Hemoglobin 14.2 g/dL (12.0-16.0); Immature Granulocytes # (auto) 0.03 K/uL (0.00-0.02); Immature Granulocytes % (auto) 0.3 %; Lymphocytes # (auto) 1.67 K/uL (1.2-3.4); Lymphocytes % (auto) 15.8 %; Mean Corpuscular Hemoglobin 29.3 pg (25-34); Mean Corpuscular Hgb Conc 33.3 g/dL (32-36); Mean Corpuscular Volume 87.8 fL (80-100); Mean Platelet Volume 10.2 fL (7.4-10.4); Monocytes # (auto) 1.42 K/uL (0.11-0.59); Monocytes % (auto) 13.4 %; Neutrophils # (auto) 6.86 K/uL (1.4-6.5); Platelet Count 276 K/uL (130-400); RDW Coefficient of Variation 14.5 % (11.5-14.5); RDW Standard Deviation 46.5 fL (36.4-46.3); Red Blood Count 4.85 M/uL (4.2-5.4); White Blood Count 10.56 K/uL (4.8-10.8)
--- NOTE | 2019-08-30 09:15 | Nephrology Progress Note ---
Date of Service August 30, 2019 Assessment & Plan (1) Hypertension: Mrs. Styles has longstanding history of essential HTN, diabetic nephropathy w/ normal EGFR and nonnephrotic proteinuria. She presented w/ accelerated HTN. Renal angiography 08/25/19 was negative for SAVANNAH. Nocturnal oximetry without desaturations. TSH and T4 normal. Renin and aldosterone levels are low, 24 hour urine for free cortisol pending. Serum free metanephrine pending * BP now controlled. Current antihypertensive regimen: Losartan 100 mg qPM, Clonidine 0.1 mg BID, Chlorthalidone 25 mg qAM, Amlodipine 5 mg BID, Hydralazine 50 mg TID, Spironolactone 200 mg QAM * Mild increase in Cr may be related to reduced perfusion associated w/ BP control or diuretic effect. Will need close outpatient monitoring of BP, electrolytes and kidney function * Urine cortisol and serum metanephrine studies are pending * I have placed order in EMR for staff nuclear weapons officer staff to schedule outpatient evaluation w/ Dr. Hopkins in 7 - 10 days * I have placed order in EMR and advised patient to have nonfasting blood and urine studies completed at least 2 days prior to outpatient OV snd bring all medications to OV for reconciliation Admission and Anticipated Discharge Date Admission Date: August 24, 2019 Subjective Mrs. Styles was seen & examined in her hospital room this morning. She currently denies angina, dyspnea or uremic symptoms. She is tolerating her current BP regimen without side effect but does c/o "taking too many pills" Review of Systems Constitutional: no fever and no weakness Eyes: no problem reported Ear, Nose, Mouth, Throat: no problem reported Respiratory: no cough and no dyspnea Cardiovascular: no chest pain, no palpitations and no edema Gastrointestinal: + diarrhea/loose stools; no abdominal pain, no nausea and no vomiting Genitourinary: no dysuria and no hematuria Musculoskeletal: no back pain Integumentary: no rash Neurologic: no falls and no confusion Physical Exam Constitutional: + overweight Eyes: PERRL, conjunctivae normal, anicteric sclerae ENMT: external ear and nose normal, oropharynx normal Neck: trachea midline, no thyromegaly Respiratory: normal respiratory effort, lungs clear to auscultation Cardiovascular: RRR, no murmur, no edema Gastrointestinal (Abdomen): normal bowel sounds, soft, nontender, no hep atosplenomegaly Musculoskeletal: Extremities: no cyanosis Skin: no rashes, warm and dry Neurologic: awake; not confused Results & Data ([facility]) Vital Signs (Past 12 Hours) Vital Signs Temp Pulse Pulse Resp BP BP Pulse Ox 08/30/19 07:41 36.8 C 64 18 131/64 96 08/30/19 07:30 64 08/30/19 00:00 36.9 C 83 18 129/76 92 08/29/19 23:00 36.7 C 88 20 120/70 153/79 H 94 Laboratory Results Laboratory Tests 08/24/19 08/27/19 08/27/19 09:37 05:59 13:00 WBC Hgb Hct Plt Count Sodium Potassium Chloride Carbon Dioxide BUN Creatinine Glucose Renin Activity 0.16 L Aldosterone 3 Plasma Metanephrine Pending Ur Free Cortisol 24 Hr Pending 08/29/19 08/30/19 05:25 05:26 WBC 11.34 H Hgb 14.6 Hct 45.0 Plt Count 293 Sodium 138 Potassium 3.9 Chloride 107 Carbon Dioxide 25 BUN 36 H Creatinine 1.36 H Glucose 88 Renin Activity Aldosterone Plasma Metanephrine Ur Free Cortisol 24 Hr PG Care Time/CCT Total # of Minutes Spent Total Time Spent with Patient: Total time spent is greater than 50% in coordination of care (as documented) at patient's floor/unit and/or counseling patient: Coding Level of Care Code 92404 Subseq Hosp Care Lvl 3 Diagnoses Hypertension I10
[2019-09-01 08:34] LABS: Metanephrine, Plasma 35 pg/mL (<=57); Normetanephrine Plasma 96 pg/mL (<=148); Total Metanephrine Plasma 131 pg/mL (<=205)
[2019-09-01 12:18] LABS: Creatinine, 24 hr Urine 0.75 g/24 h (0.50-2.15)
--- NOTE | 2019-09-03 12:18 | Coding Query ---
A supporting diagnosis is required for the test/procedure performed on this patient in order for us to be reimbursed by the patient's insurance. Please provide a supporting diagnosis for the following test/procedure listed below next to the test name along with your signature. *If there is no additional diagnosis for this patient that would support the following test/procedure please document that below next to the test/procedure. Test(s)/Procedure(s) that require a supporting diagnosis: Measure blood oxygen level DIAGNOSIS:_Hypertensive urgency Provider Signature: Date: Thank you Kelsy Zee Health Information Management Once completed, please kindly fax back to [phone] For questions please call [phone] GERA
--- NOTE | 2019-09-06 07:51 | Discharge Summary ---
Date of Service August 30, 2019 Principal Diagnosis hypertensive urgency Discharge Exam Constitutional: obese, in no apparent distress, sitting comfortably in bed. Eyes: EOMI, pupils equal and reactive bilaterally, no scleral icterus HENT: Thick neck Cardiac: RRR, no murmurs, gallops or rubs. Normal S1, S2 Pulm: CTA BL, no wheezes, rhonchi, crackles or rubs, moving air well throughout both lungs Abd: soft, nontender, nondistended, normal bowel sounds, no rebound or guarding Extremities: 2+ peripheral pulses, no edema Neuro: no focal deficits, moving all 4 limbs, A&Ox3 Discharge Data Allergies Allergy/AdvReac Type Severity Reaction Status Date / Time No Known Drug Allergies AdvReac Verified 09/02/19 15:35 Consultations 08/23/19 18:52 ED Decision to Admit Stat 08/24/19 17:44 Consult Cardiology Routine 08/26/19 08:13 Consult Nephrology Routine Procedures Performed Operation Date: 08/25/19 14:00 Actual Procedures p Angio Renal Bilateral - Willie Kaur MD s Intro of Catheter, Aorta - Willie Kaur MD Ordered Studies 08/23/19 17:51 CT head/brain wo con Stat 08/24/19 08:00 US duplex renal artery Routine 08/25/19 13:43 CL Cath Imgs for PACS use only Routine Hospital Course (1) Hypertensive urgency: 69 yo F with PMH DM2 on insulin, recent HTN diagnosis uncontrolled on 4+ medications, admitted for HTNive urgency and BP control. 1) HTNive Urgency - no signs of end organ failure or damage. Pressures of 200/90 on admission. Received 10 mg IV Hydralazine x2 in ED, lowering BP to 180/90. - Outpatient regimen: - Clonidine 0.1 mg PO BID (new as of 08/22) - Losartan 100 mg PO PM - Bumex 2 mg PO daily PRN Swelling - Atenolol 50 mg PO PM Patient is now on: Losartan 100 mg PO BID Clonidine 0.1 BID Spironolactone 200 MG daily Chlorthalidone 25 MG daily amlodipine 5 mg po bid Renal artery stenosis has been ruled out by arteriogram. obtaining renin aldosterone as well as 24 hour cortisol. BP appears better controlled consulted nephro. Appreciate input. Mrs. Styles has longstanding history of essential HTN, diabetic nephropathy w/ normal EGFR and nonnephrotic proteinuria. She presented w/ accelerated HTN. Renal angiography 08/25/19 was negative for SAVANNAH. Nocturnal oximetry without desaturations. TSH and T4 normal. Renin and aldosterone levels are low, 24 hour urine for free cortisol pending. Serum free metanephrine pending BP now controlled. Current antihypertensive regimen: Losartan 100 mg qPM, Jenny nidine 0.1 mg BID, Chlorthalidone 25 mg qAM, Amlodipine 5 mg BID, Hydralazine 50 mg TID, Spironolactone 200 mg QAM Mild increase in Cr may be related to reduced perfusion associated w/ BP control or diuretic effect. Will need close outpatient monitoring of BP, electrolytes and kidney function Urine cortisol and serum metanephrine studies are pending I have placed order in EMR for director of district office staff to schedule outpatient evaluation w/ Dr. Hopkins in 7 - 10 days I have placed order in EMR and advised patient to have nonfasting blood and urine studies completed at least 2 days prior to outpatient OV snd bring all medications to OV for reconciliation - requires lots of education regarding dietary and lifestyle management of hypertension [dietary consult placed for discussion re: easy foods to work with on a heart healthy and diabetic diet] 2) RIYA? - seems unlikely - completed overnight oxygen sat: this was negative, 3) DM2 on insulin - Home regimen: - Toujeo 48 units nightly - Insulin Lispro 12 units with lunch, 20 with dinner - Nightly insulin adjusted to 80% of normal x1 dose given conversion from Toujeo to Lantus [35 units x 1 dose 08/22 pm]. - Nightly insulin going forward 40 units Lantus QPM while hospitalized, can be adjusted based on sugars and requirements - SSI ordered, 1:7 carb ratio, correction factor 25 4) CAD prevention - no NV/CAD hx - continue daily ASA 81 mg, pravastatin 20 mg - high risk for adverse cardiac events (14.8% 10 year risk of NV/) 5) Migraines with aura - sumatriptan continued from home regimen 6) Gout - probenacid continued from home 7) chronic diarrhea: doubt infectious. ordered one dose of loperamide. will monitor. will benefit from outpatient colonoscopy. DVT ppx: lovenox FEN/GI: Carb consistent, low sodium diet Code Status: Full Code (2) Dizziness: (3) H/O: hysterectomy: (4) Insulin dependent diabetes mellitus: Total Time Total Time Spent Total Time Spent (In Minutes): 32 Total Time Includes: Examination of the Patient, Discharge Planning and Medication Reconciliation Discharge Plan Discharge Items Patient Disposition: Home - Self-Care Reason For Visit: HTN URGENCY Discharge Diagnosis: Hypertensive urgency. Activity: Resume your previous activity Non-emergency contact: Primary Care Provider Call non-emergency contact if: you have any medication questions Follow-up/Referrals: Arik Bañuelos MD [Primary Care Provider] - 09/02/19 9:15 am (DR SMITH OFFICE WILL CALL YOU TO SCHEDULE AN APT.) Diet: Carb Consistent or DM2 and Low Sodium (2gm) Addtl Attending Provider Instructions: You have been hospitalized for an acute medical problem. During your stay at [facility], we have made an effort to correct the problem that brought you to the hospital while keeping you as comfortable as possible. Medications were used to bring your condition under control and your discharge instructions will include directions for any medications you should take after leaving the hospital. Please make sure you see your Primary Care Provider as part of your follow up plan. Will recommend blood work in about 5 days and close followup with Dr. Hopkins. Plan is to slowly taper you off some of your blood pressure medications once it has been stabilized. Pending Studies at Discharge: No Stand-Alone Forms: My [facility], Smoking Cessation Medications and DC Order Prescriptions: New spironolactone 100 mg Tablet 200 mg PO QAM Qty: 60 RF: 0 chlorthalidone 25 mg Tablet 25 mg PO QAM Qty: 30 RF: 0 amlodipine [Norvasc] 5 mg Tablet 5 mg PO BID Qty: 60 RF: 0 hydralazine 50 mg Tablet 50 mg PO TID Qty: 90 RF: 0 Continued (DME) OneTouch Ultra Blue Test Strip Strip See Dose Instructions .ROUTE .MEDSUPPLY Qty: 400 RF: 3 Toujeo SoloStar U-300 Insulin 300 unit/mL (1.5 mL) insulin pen 48 units SQ HS Qty: 18 RF: 3 (DME) lancets [OneTouch Delica Plus Lancet] 33 gauge misc See Dose Instructions .ROUTE .MEDSUPPLY RF: 0 aspirin 81 mg tablet,delayed release (DR/EC) 81 mg PO Q OTHER DAY RF: 0 sumatriptan succinate 50 mg tablet 50 mg PO DAILY PRN (Reason: headache) Qty: 6 RF: 0 loperamide [Imodium A-D] 2 mg Tablet 2 mg PO QID PRN (Reason: Diarrhea) RF: 0 omega-3 fatty acids 1,000 mg capsule 1,000 mg PO BID RF: 0 calcium carbonate [Calcium 600] 600 mg calcium (1,500 mg) tablet 600 mg PO AMPM RF: 0 ibuprofen [Advil] 200 mg tablet 600 mg PO Q6H PRN (Reason: pain) RF: 0 pravastatin 20 mg tablet 20 mg PO PM RF: 0 losartan 100 mg tablet 100 mg PO PM RF: 0 probenecid 500 mg tablet 500 mg PO PM RF: 0 insulin lispro [Humalog KwikPen Insulin] 100 unit/mL insulin pen 50 units SQ BIDM RF: 0 Discontinued bumetanide 2 mg tablet 2 mg PO DAILY PRN (Reason: hx of edema) RF: 0 atenolol 100 mg tablet 50 mg PO PM RF: 0 No Action clonidine HCl 0.1 mg tablet 0.1 mg PO BID Qty: 60 RF: 2 Discharge Orders: Discharge Order (Routine); Ordered 08/30/19 Ordered By: Serjio Frank Admission Data Admit Date/Time: 08/23/19 20:02 Attending Provider: Serjio Frank Admit Provider: Betina Donaldson Primary Care Provider: Arik Bañuelos V. Other Providers: Willie Kaur ; Enrique Hopkins Other Interventions: Discharge Summary Assessment (RN) Last Done: 08/30/19 10:59 DC Date/Time DO NOT enter until pt leaves facility: 08/30/19 11:52 Coding Level of Care Code D/C Day Management >30 mins Diagnoses Hypertensive urgency I16.0 Dizziness R42 H/O: hysterectomy Z90.710 Insulin dependent diabetes mellitus Time Spent (min) 32
== END 2019-08-30 11:52 | disposition home or self-care (01) ==
LOC: 2W 16:12 → ED 16:12 → SUATTDRO 20:02 → 2W 22:15 → 2S 08-25 15:14